=== PATIENT | male | born 1950 | race Caucasian/White ===

== ENCOUNTER 2016-08-25 01:02 | Emergency (ER) | payer SELFPAY ==
[2016-08-25 02:03] LABS: ALANINE AMINOTRANSFERASE 25 U/L (21-72); ALBUMIN 3.8 g/dL (3.5-5.0); ALKALINE PHOSPHATASE 79 U/L (38-126); ANION GAP 13 (5-19); ASPARTATE AMINO TRANSFERASE 26 U/L (17-59); BILIRUBIN,DIRECT 0.4 mg/dL (0.0-0.4); BILIRUBIN,TOTAL 0.5 mg/dL (0.2-1.3); BLOOD UREA NITROGEN 20 mg/dL (7-20); CALCIUM 9.3 mg/dL (8.4-10.2); CARBON DIOXIDE 24 mmol/L (22-30); CHLORIDE 108 mmol/L (98-107); CREATININE RESULT 1.13 mg/dL (0.52-1.25); GLUCOSE 154 mg/dL (75-110); LIPASE 74.8 U/L (23-300); POTASSIUM 3.7 mmol/L (3.6-5.0); SODIUM 145.1 mmol/L (137-145); TOTAL PROTEIN 6.4 g/dL (6.3-8.2)
[2016-08-25 02:21] LABS: ABSOLUTE BASOPHILS # (AUTO) 0.1 10^3/uL (0.0-0.2); ABSOLUTE EOSINOPHILS # (AUTO) 0.3 10^3/uL (0.0-0.6); ABSOLUTE LYMPHOCYTES (AUTO) 1.5 10^3/uL (0.5-4.7); ABSOLUTE MONOCYTES (AUTO) 0.5 10^3/uL (0.1-1.4); ABSOLUTE NEUT (AUTO) 4.5 10^3/uL (1.7-8.2); EOSINOPHILS % (AUTO) 4.5 % (0-6); HEMATOCRIT 37.8 % (37.9-51.0); HGB HCT DIFFERENCE 1.2; LYMPHOCYTES % (AUTO) 21.8 % (13-45); MEAN CORPUSCULAR HEMOGLOBIN 29.4 pg (27.0-33.4); MEAN CORPUSCULAR HGB CONC 34.3 g/dL (32.0-36.0); MEAN CORPUSCULAR VOLUME 86 fl (80-97); MONOCYTES % (AUTO) 7.3 % (3-13); RED BLOOD COUNT 4.41 10^6/uL (4.35-5.55); RED CELL DISTRIBUTION WIDTH 14.3 % (11.5-14.0); SEGMENTED NEUTROPHILS % (AUTO) 65.4 % (42-78); WHITE BLOOD COUNT 6.8 10^3/uL (4.0-10.5)
[2016-08-25] MEDS ORDERED: CIPROFLOXACIN HCL 500 MG TABLET PO ONE (03:01)
[2016-08-25] MEDS ORDERED: METRONIDAZOLE 500 MG TABLET PO ONE (03:01)
--- NOTE | 2016-08-25 03:06 | ER Document Report ---
ED General - General Chief Complaint: Abdominal Pain Stated Complaint: ABDOMINAL PAIN Notes: Patient is a 65-year-old male with past medical history of hypertension, hyperlipidemia and diverticulitis who presents with 2 days of progressively worsening diffuse abdominal pain with associated diarrhea and nausea. Does describe the pain as a diffuse, constant, dull, aching pain. Nothing improves or worsens the pain. Denies a history of similar symptoms in the past. He has not seen his primary care doctor regarding today's concerns. He has not had fever constitutional symptoms. He has not had any melena or hematochezia. Has been tolerating oral intake. TRAVEL OUTSIDE OF THE [place] IN LAST 30 DAYS: No - Related Data Allergies/Adverse Reactions: No Known Allergies Allergy (Verified 11/23/15 17:27) Past Medical History - General Information source: Patient - Social History Smoking Status: Never Smoker Frequency of alcohol use: None Drug Abuse: None Lives with: Spouse/Significant other Family History: Reviewed & Not Pertinent GI Medical History: Reports: Hx Gastroesophageal Reflux Disease, Hx Hiatal Hernia Musculoskeltal Medical History: Reports Hx Arthritis Psychiatric Medical History: Reports: Hx Bipolar Disorder, Hx Depression - Immunizations Hx Pneumococcal Vaccination: 05/15/97 Review of Systems - Review of Systems Notes: Constitutional: Negative for fever. HENT: Negative for sore throat. Eyes: Negative for visual changes. Cardiovascular: Negative for chest pain. Respiratory: Negative for shortness of breath. Gastrointestinal: Positive for abdominal pain and diarrhea. Genitourinary: Negative for dysuria. Musculoskeletal: Negative for back pain. Skin: Negative for rash. Neurological: Negative for headaches, weakness or numbness. 10 point ROS negative except as marked above and in HPI. Physical Exam - Vital signs Vitals: Pulse Resp BP Pulse Ox 57 L 16 102/61 95 08/25/16 03:22 08/25/16 03:22 08/25/16 03:22 08/25/16 03:22 Interpretation: Bradycardic Notes: PHYSICAL EXAMINATION: GENERAL: Well-appearing, well-nourished and in no acute distress. HEAD: Atraumatic, normocephalic. EYES: Pupils equal round and reactive to light, extraocular movements intact, sclera anicteric, conjunctiva are normal. ENT: nares patent, oropharynx clear without exudates. Moist mucous membranes. NECK: Normal range of motion, supple without lymphadenopathy LUNGS: Breath sounds clear to auscultation bilaterally and equal. No wheezes rales or rhonchi. HEART: Regular rate and rhythm without murmurs ABDOMEN: Soft, mild diffuse tenderness without rebound or guarding. Bowel sounds present. No masses. EXTREMITIES: Normal range of motion, no pitting or edema. No cyanosis. NEUROLOGICAL: No focal neurological deficits. Moves all extremities spontaneously and on command. PSYCH: Normal mood, normal affect. SKIN: Warm, Dry, normal turgor, no rashes or lesions noted. Course - Re-evaluation Re-evalutation: 08/25/16 03:05 Patient presents with diffuse abdominal pain with associated diarrhea for the past 2 days. On abdominal exam he has some mild diffuse tenderness without rebound or guarding. Laboratories are overall unremarkable. Patient is nontoxic in appearance of vitals within normal limits at the time of my assessment. CT scan pelvis demonstrates colitis of the transverse and descending colon which is consistent with patient's clinical history. He was started on Cipro and metronidazole. Close outpatient follow-up has been discussed.At this time will discharge with return precautions and follow-up recommendations. Verbal discharge instructions given a the bedside and opportunity for questions given. Medication warnings reviewed. Patient is in agreement with this plan and has verbalized understanding of return precautions and the need for primary care follow-up in the next 24-72 hours. - Vital Signs Vital signs: Temp Pulse Resp BP Pulse Ox 57 L 16 102/61 95 08/25/16 03:22 08/25/16 03:22 08/25/16 03:22 08/25/16 03:22 - Laboratory Result Diagrams: 08/25/16 01:40 08/25/16 01:40 Laboratory results interpreted by me: 08/25/16 08/25/16 01:40 01:40 Hgb 13.0 L Hct 37.8 L RDW 14.3 H Sodium 145.1 H Chloride 108 H Glucose 154 H - Diagnostic Test Radiology reviewed: Reports reviewed Discharge - Discharge Clinical Impression: Colitis Abdominal pain Qualifiers: Abdominal location: generalized Qualified Code(s): R10.84 - Generalized abdominal pain Condition: Good Disposition: HOME, SELF-CARE Additional Instructions: In your abdomen. Your labs, exam, and imaging suggest a diagnosis of colitis. This is an inflammation of a part of your colon. You are being started on antibiotics to treat this infection and inflammation. Please take all of them as directed and complete them even if your symptoms resolve. Please follow-up with your primary care physician within the next 48 hours. Return to the emergency department immediately if you develop worsening pain, persistent vomiting, began having bloody stools, develop a fever of greater than 101F, or have any other symptoms that are concerning to you. Prescriptions: Ciprofloxacin HCl [Cipro 500 mg Tablet] 500 mg PO BID #20 tablet Metronidazole [Flagyl 500 mg Tablet] 500 mg PO TID #30 tablet
[2016-08-25 03:24] VITALS: BP 102/61
== END 2016-08-25 03:22 | disposition home or self-care (01) ==
LOC: ER 01:02
DX: K52.9 Noninfective gastroenteritis and colitis, unspecified (principal); R10.84 Generalized abdominal pain; R19.7 Diarrhea, unspecified; I10 Essential (primary) hypertension; E78.5 Hyperlipidemia, unspecified; K57.92 Diverticulitis of intestine, part unspecified, without perforation or abscess without bleeding; K21.9 Gastro-esophageal reflux disease without esophagitis
CPT/HCPCS: 36415; 74177; 80053; 83690; 85025; 99284

== ENCOUNTER 2017-03-13 15:23 | Emergency (ER) | payer BC, MEDICARE ==
[2017-03-13] MEDS ORDERED: NAPROXEN 250 MG TABLET PO ONE (15:57)
[2017-03-13] MEDS ORDERED: CEPHALEXIN 500 MG CAPSULE PO ONE (15:57)
--- NOTE | 2017-03-13 15:57 | ER Document Report ---
ED Extremity Problem, Upper - General Chief Complaint: Arm Pain Stated Complaint: ARM PAIN Time Seen by Provider: 03/13/17 15:38 Mode of Arrival: Ambulatory Information source: Patient Notes: 66-year-old male presents to ED for pain swelling redness to right arm since Monday when he had an IV for an MRI states he has not injured himself and is not allergic to anything. He states the pain and redness has gradually developed since Monday he thought that it would go away but it did not so he came in to get it checked out. TRAVEL OUTSIDE OF THE [place] IN LAST 30 DAYS: No - HPI Patient complains to provider of: Right, Forearm Onset: Other - Monday Recent injury: No Where: Other - Started after an IV line MRI Quality of pain: Burning Severity of pain: Mild Pain Level: 2 Context: Other - Redness and swelling to the right forearm since his MRI Associated symptoms: None Exacerbated by: Nothing Relieved by: Nothing Similar symptoms previously: No Recently seen / treated by doctor: Yes - Related Data Allergies/Adverse Reactions: No Known Allergies Allergy (Verified 11/23/15 17:27) Past Medical History - General Information source: Patient - Social History Smoking Status: Never Smoker Cigarette use (# per day): No Chew tobacco use (# tins/day): No Smoking Education Provided: No Frequency of alcohol use: None Drug Abuse: None Lives with: Family Family History: Hyperlipidemia, Malignancy. denies: Arthritis, CAD, COPD, CVA, DM, Hypertension, Thyroid Disfunction Patient has suicidal ideation: No Patient has homicidal ideation: No - Past Medical History Cardiac Medical History: Reports: Hx Coronary Artery Disease, Hx Hypercholesterolemia, Hx Hypertension Pulmonary Medical History: Reports: None EENT Medical History: Reports: None Neurological Medical History: Reports: Hx Migraine Endocrine Medical History: Reports: None Renal/ Medical History: Reports: None Malignancy Medical History: Reports None GI Medical History: Reports: Hx Gastroesophageal Reflux Disease, Hx Hiatal Hernia, Hx Colonoscopy Musculoskeltal Medical History: Reports Hx Arthritis, Reports Hx Musculoskeletal Deformity, Reports Hx Musculoskeletal Trauma Skin Medical History: Reports None Psychiatric Medical History: Reports: Hx Bipolar Disorder, Hx Depression, Hx Obsessive Compulsive Disorder Traumatic Medical History: Reports: Hx Traumatic Brain Injury Past Surgical History: Reports: Hx Cardiac Catheterization, Hx Coronary Stent, Hx Inguinal Hernia, Hx Orthopedic Surgery - Need, Hx Vascular Surgery - Took an artery out of left lutheran - Immunizations Immunizations up to date: Yes Hx Diphtheria, Pertussis, Tetanus Vaccination: Yes Hx Pneumococcal Vaccination: 05/15/97 Review of Systems - Review of Systems Constitutional: No symptoms reported EENT: No symptoms reported Cardiovascular: No symptoms reported Respiratory: No symptoms reported Gastrointestinal: No symptoms reported Genitourinary: No symptoms reported Male Genitourinary: No symptoms reported Musculoskeletal: No symptoms reported Skin: Other - Pain redness and swelling to the right forearm after an IV was placed on Monday Hematologic/Lymphatic: No symptoms reported Neurological/Psychological: No symptoms reported -: Yes All other systems reviewed and negative Physical Exam - Vital signs Vitals: Temp Pulse Resp BP Pulse Ox 98.5 F 68 16 118/92 H 96 03/13/17 15:33 03/13/17 15:33 03/13/17 15:33 03/13/17 15:33 03/13/17 15:33 Interpretation: Normal - General General appearance: Appears well, Alert - HEENT Head: Normocephalic, Atraumatic Eyes: Normal Pupils: PERRL - Respiratory Respiratory status: No respiratory distress Chest status: Nontender Breath sounds: Normal Chest palpation: Normal - Cardiovascular Rhythm: Regular Heart sounds: Normal auscultation Murmur: No - Abdominal Inspection: Normal Distension: No distension Bowel sounds: Normal Tenderness: Nontender Organomegaly: No organomegaly - Back Back: Normal, Nontender - Extremities General upper extremity: Normal ROM, Normal temperature General lower extremity: Normal inspection, Nontender, Normal color, Normal ROM , Normal temperature, Normal weight bearing. No: Franklin's sign Arm: Normal, Nontender Elbow: Normal, Nontender Forearm: Tender, Other - Mild erythema and swelling to right forearm Wrist: Normal, Nontender Hand: Normal, Nontender - Neurological Neuro grossly intact: Yes Cognition: Normal Orientation: AAOx4 [place] Coma Scale Eye Opening: Spontaneous [place] Coma Scale Verbal: Oriented Jason Coma Scale Motor: Obeys Commands Jason Coma Scale Total: 15 Speech: Normal Motor strength normal: LUE, RUE, LLE, RLE Sensory: Normal - Psychological Associated symptoms: Normal affect, Normal mood - Skin Skin Temperature: Warm Skin Moisture: Dry Skin Color: Normal Course - Re-evaluation Re-evalutation: 03/13/17 16:22 Patient states he had an MRI on Monday and he had an IV to the right wrist and slowly developed pain and redness to the right forearm. He states it has not gotten better so he became concerned and came to the emergency room. Patient was treated with Keflex and naproxen and instructed to follow-up with his primary doctor as this appears to be of phlebitis. - Vital Signs Vital signs: Temp Pulse Resp BP Pulse Ox 98.0 F 63 18 106/89 H 98 03/13/17 16:03 03/13/17 16:03 03/13/17 16:03 03/13/17 16:03 03/13/17 16:03 Discharge - Discharge Clinical Impression: right forearm phlebitis Condition: Stable Disposition: HOME, SELF-CARE Additional Instructions: You were seen today for pain and redness to the right arm after an IV was inserted on Monday. You will be treated for phlebitis which I have given you a printout concerning phlebitis. Cephalexin The antibiotic you've been prescribed is a member of the cephalosporin class. This type of antibiotic covers a wide variety of infections, including those of the skin, lungs, and urinary tract. It's useful for staph infections. This antibiotic is slightly similar to the penicillin family. In rare cases , a person who is allergic to penicillin will also be allergic to this medication. If you have had a severe allergic reaction to penicillin, and have not taken this antibiotic since that time, notify your doctor. Antibiotics which cover many germs ("broad spectrum" antibiotics) are more likely to cause diarrhea or "yeast" infections. Women prone to vaginal yeast problems may suffer an attack after taking this antibiotic. In infants, oral thrush (white spots "stuck" on the cheek) or yeast diaper rash may result. See your doctor if these problems occur. Call at once if you develop itching, hives , shortness of breath, or lightheadedness. Anti-Inflammatory Medication You have received a prescription for an antiinflammatory agent. This is an excellent, safe drug for pain control. In addition, it has potent antiinflammatory effects which are beneficial, especially in the treatment of injuries, arthritis, or tendonitis. It's best to take this medicine with food. Persons with ulcer disease or allergy to aspirin should notify their physician of this before taking this drug. Take the medication exactly as prescribed. Don't take additional doses unless instructed to do so by your doctor. If you develop wheezing, shortness of breath, hives, faintness, stomach pain, vomiting, or dark black stools, return for re-evaluation at once. FOLLOW-UP CARE: If you have been referred to a physician for follow-up care, call the physician s office for an appointment as you were instructed or within the next two days. If you experience worsening or a significant change in your symptoms, notify the physician immediately or return to the Emergency Department at any time for re-evaluation. Prescriptions: Cephalexin Monohydrate [Keflex 500 mg Capsule] 500 mg PO Q6H 5 Days capsule Naproxen 500 mg PO BID #14 tablet Forms: Elevated Blood Pressure
[2017-03-13 16:08] VITALS: BP 106/89
== END 2017-03-13 16:07 | disposition home or self-care (01) ==
LOC: ER 15:23
DX: T80.1XXA Vascular complications following infusion, transfusion and therapeutic injection, initial encounter (principal); I80.8 Phlebitis and thrombophlebitis of other sites; Y83.8 Other surgical procedures as the cause of abnormal reaction of the patient, or of later complication, without mention of misadventure at the time of the procedure; M79.601 Pain in right arm; I25.10 Atherosclerotic heart disease of native coronary artery without angina pectoris; I10 Essential (primary) hypertension; Z95.5 Presence of coronary angioplasty implant and graft
CPT/HCPCS: 99283; A9270 ×2

== ENCOUNTER 2017-10-23 20:26 | Observation (INO) | payer MEDICARE ==
--- NOTE | 2017-10-23 20:42 | ER Document Report ---
ED Syncope and Near Syncope - General Chief Complaint: Near Syncope Stated Complaint: CHEST PAIN Time Seen by Provider: 10/23/17 20:31 Notes: Patient is a 66-year-old male that comes by EMS for chief complaint of syncopal episode. He states that he started to feel lightheaded, clammy, his arms went numb, he had a mild discomfort in his chest, and he sank down onto the floor and lost consciousness. He denies having a fall injury. He states that when he aroused he became concerned and took a nitroglycerin, called ambulance. He states that the last time he passed out he had an MRI, this was in 2012 and he had 2 stents placed in [place]. He takes 80 mg of Lasix daily, is on labetalol, he also states that he takes Protonix. He states he has been taking Pepto-Bismol and he has had black stools for several days. Denies history of GI bleed. He denies any current symptoms. TRAVEL OUTSIDE OF THE [place] IN LAST 30 DAYS: No - Related Data Allergies/Adverse Reactions: No Known Allergies Allergy (Verified 11/23/15 17:27) Past Medical History - General Information source: Patient - Social History Smoking Status: Never Smoker Frequency of alcohol use: None Drug Abuse: None Lives with: Family Family History: Hyperlipidemia, Malignancy. denies: Arthritis, CAD, COPD, CVA, DM, Hypertension, Thyroid Disfunction - Past Medical History Cardiac Medical History: Reports: Hx Coronary Artery Disease, Hx Hypercholesterolemia, Hx Hypertension Neurological Medical History: Reports: Hx Migraine GI Medical History: Reports: Hx Gastroesophageal Reflux Disease, Hx Hiatal Hernia, Hx Colonoscopy Musculoskeltal Medical History: Reports Hx Arthritis, Reports Hx Musculoskeletal Deformity, Reports Hx Musculoskeletal Trauma Psychiatric Medical History: Reports: Hx Bipolar Disorder, Hx Depression, Hx Obsessive Compulsive Disorder Traumatic Medical History: Reports: Hx Traumatic Brain Injury Past Surgical History: Reports: Hx Cardiac Catheterization, Hx Coronary Stent, Hx Inguinal Hernia, Hx Orthopedic Surgery - Need, Hx Vascular Surgery - Took an artery out of left advent - Immunizations Immunizations up to date: Yes Hx Diphtheria, Pertussis, Tetanus Vaccination: Yes Hx Pneumococcal Vaccination: 05/15/97 Review of Systems - Review of Systems Constitutional: No symptoms reported EENT: No symptoms reported Cardiovascular: See HPI Respiratory: No symptoms reported Gastrointestinal: No symptoms reported Genitourinary: No symptoms reported Male Genitourinary: No symptoms reported Musculoskeletal: No symptoms reported Skin: No symptoms reported Hematologic/Lymphatic: No symptoms reported Neurological/Psychological: See HPI Physical Exam - Vital signs Vitals: Temp Pulse Ox 97.7 F 100 10/23/17 20:34 10/23/17 20:34 - Notes Notes: GENERAL: Alert, interacts well. No acute distress. HEAD: Normocephalic, atraumatic. EYES: Pupils equal, round, and reactive to light. Extraocular movements intact. ENT: Oral mucosa moist, tongue midline. NECK: Full range of motion. Supple. Trachea midline. LUNGS: Clear to auscultation bilaterally, no wheezes, rales, or rhonchi. No respiratory distress. HEART: Sinus bradycardia. No murmur. ABDOMEN: Soft, non-tender. Non-distended. Bowel sounds present in all 4 quadrants. RECTAL: No hemorrhoids, fissures, black stools, or abnormalities noted on exam. EXTREMITIES: Moves all 4 extremities spontaneously. No edema, normal radial and dorsalis pedis pulses bilaterally. No cyanosis. BACK: no cervical, thoracic, lumbar midline tenderness. No saddle anesthesia, normal distal neurovascular exam. NEUROLOGICAL: Alert and oriented x3. Normal speech. [cranial nerves II through XII grossly intact]. PSYCH: Normal affect, normal mood. SKIN: Warm, dry, normal turgor. No rashes or lesions noted. Course - Re-evaluation Re-evalutation: EKG shows sinus bradycardia, flattened T waves inferiorly. CBC unremarkable, chemistry unremarkable, 2 sets of negative troponins. Rectal exam unremarkable , no blood in stool, suspect his stool appeared dark because of the Pepto- Bismol. Urine shows moderate leukocyte esterase, no urinary symptoms, culture placed. Chest x-ray unremarkable. Patient symptoms of bradycardia along with having chest pain, diaphoresis, and syncope are very concerning. As result I discussed with patient and will discuss with hospitalist for telemetry observation and cardiology consult. Likely hold his beta-liberty. Patient states agreement with this plan. Patient has been asymptomatic since he arrived. Discussed with Dr. Martin, internal medicine, patient will be admitted to telemetry observation. - Vital Signs Vital signs: Temp Pulse Resp BP Pulse Ox 98.7 F 12 141/79 H 97 10/24/17 04:29 10/24/17 04:01 10/24/17 04:01 10/24/17 04:01 - Laboratory Result Diagrams: 10/23/17 20:10 10/24/17 04:47 Laboratory results interpreted by me: 10/23/17 10/23/17 10/23/17 20:10 20:10 21:25 RDW 14.1 H Eosinophils % 6.7 H Basophils % 2.5 H Direct Bilirubin 0.5 H Urine Urobilinogen 4.0 H Ur Leukocyte Esterase MODERATE H Discharge - Discharge Clinical Impression: Bradycardia Chest pain Qualifiers: Chest pain type: unspecified Qualified Code(s): R07.9 - Chest pain, unspecified Episode of syncope Qualifiers: Syncope type: unspecified Qualified Code(s): R55 - Syncope and collapse Condition: Stable Disposition: ADMITTED OBSERVATION Admitting Provider: Hospitalist Unit Admitted: Telemetry
[2017-10-23 20:48] LABS: ABSOLUTE BASOPHILS # (AUTO) 0.1 10^3/uL (0.0-0.2); ABSOLUTE EOSINOPHILS # (AUTO) 0.4 10^3/uL (0.0-0.6); ABSOLUTE LYMPHOCYTES (AUTO) 2.1 10^3/uL (0.5-4.7); ABSOLUTE MONOCYTES (AUTO) 0.3 10^3/uL (0.1-1.4); ABSOLUTE NEUT (AUTO) 2.6 10^3/uL (1.7-8.2); BASOPHILS % (AUTO) 2.5 % (0-2); EOSINOPHILS % (AUTO) 6.7 % (0-6); HEMATOCRIT 43.3 % (37.9-51.0); HEMOGLOBIN 14.6 g/dL (13.5-17.0); LYMPHOCYTES % (AUTO) 37.3 % (13-45); MEAN CORPUSCULAR HEMOGLOBIN 29.6 pg (27.0-33.4); MEAN CORPUSCULAR HGB CONC 33.7 g/dL (32.0-36.0); MEAN CORPUSCULAR VOLUME 88 fl (80-97); PLATELET COUNT 253 10^3/uL (150-450); RED BLOOD COUNT 4.93 10^6/uL (4.35-5.55); RED CELL DISTRIBUTION WIDTH 14.1 % (11.5-14.0); SEGMENTED NEUTROPHILS % (AUTO) 47.5 % (42-78); TOTAL CELLS COUNTED % (AUTO) 100 %; WHITE BLOOD COUNT 5.5 10^3/uL (4.0-10.5)
[2017-10-23 20:58] LABS: ALANINE AMINOTRANSFERASE 26 U/L (21-72); ALBUMIN 4.2 g/dL (3.5-5.0); ALKALINE PHOSPHATASE 83 U/L (38-126); ANION GAP 15 (5-19); ASPARTATE AMINO TRANSFERASE 29 U/L (17-59); BILIRUBIN,DIRECT 0.5 mg/dL (0.0-0.4); BILIRUBIN,TOTAL 0.7 mg/dL (0.2-1.3); BLOOD UREA NITROGEN 18 mg/dL (7-20); CALCIUM 9.6 mg/dL (8.4-10.2); CARBON DIOXIDE 27 mmol/L (22-30); CHLORIDE 101 mmol/L (98-107); CREATINE KINASE 149 U/L (55-170); GLUCOSE 108 mg/dL (75-110); SODIUM 142.8 mmol/L (137-145); TOTAL PROTEIN 7.1 g/dL (6.3-8.2)
[2017-10-23 21:10] LABS: TROPONIN I < 0.012 ng/mL
--- NOTE | 2017-10-23 21:14 | RADIOLOGY REPORT (SQ) ---
EXAM DESCRIPTION: CHEST SINGLE VIEW COMPLETED DATE/TIME: 10/23/2017 8:47 pm REASON FOR STUDY: chest pain COMPARISON: 11/25/2015 EXAM PARAMETERS: NUMBER OF VIEWS: One view. TECHNIQUE: Single frontal radiographic view of the chest acquired. RADIATION DOSE: NA LIMITATIONS: None. FINDINGS: LUNGS AND PLEURA: No acute opacities, masses or pneumothorax. No pleural effusion. MEDIASTINUM AND HILAR STRUCTURES: Age-appropriate. HEART AND VASCULAR STRUCTURES: Heart normal in size. Normal vasculature. BONES: No acute findings. HARDWARE: None in the chest. OTHER: No other significant finding. IMPRESSION: NO ACUTE RADIOGRAPHIC FINDING IN THE CHEST. TECHNICAL DOCUMENTATION: JOB ID: [id number] [place]-72 2010 [employer]- All Rights Reserved Reading location - IP/workstation name: [employer]
[2017-10-23 21:50] LABS: APPEARANCE,URINE CLEAR; BILIRUBIN,URINE NEGATIVE (NEGATIVE); COLOR,URINE AMBER; GLUCOSE, URINE NEGATIVE (NEGATIVE); KETONES,URINE NEGATIVE (NEGATIVE); LEUKOCYTE ESTERASE,URINE MODERATE (NEGATIVE); NITRITE,URINE NEGATIVE (NEGATIVE); PROTEIN,URINE NEGATIVE (NEGATIVE); URINE SPECIFIC GRAVITY 1.013
[2017-10-24 01:22] LABS: URINE AMPHETAMINES SCREEN NEGATIVE; URINE BARBITURATES SCREEN UNCONFIRMED POSITIVE; URINE BENZODIAZEPINES SCREEN NEGATIVE; URINE COCAINE SCREEN NEGATIVE; URINE MARIJUANA (THC) SCREEN NEGATIVE; URINE METHADONE SCREEN NEGATIVE; URINE PHENCYCLIDINE SCREEN NEGATIVE
[2017-10-24] MEDS ORDERED: IPRATROPIUM/ALBUTEROL 0.5-2.5 MG/3 ML AMPUL NEB PRN (02:41)
[2017-10-24] MEDS ORDERED: ACETAMINOPHEN 325 MG TABLET PO PRN (02:41)
[2017-10-24] MEDS: NORMAL SALINE 1000 ML 1,000 ML IV PRN ×2 (04:24→06:47)
[2017-10-24 05:29] LABS: ANION GAP 6 (5-19); BLOOD UREA NITROGEN 19 mg/dL (7-20); CALCIUM 9.4 mg/dL (8.4-10.2); CARBON DIOXIDE 31 mmol/L (22-30); CHLORIDE 108 mmol/L (98-107); CREATINE KINASE 94 U/L (55-170); GLUCOSE 93 mg/dL (75-110); POTASSIUM 4.2 mmol/L (3.6-5.0); SODIUM 144.5 mmol/L (137-145)
[2017-10-24 05:38] LABS: CREATINE KINASE MB 0.97 ng/mL (<4.55)
[2017-10-24 05:42] LABS: TROPONIN I < 0.012 ng/mL
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
[2017-10-24] MEDS: HEPARIN SOD (PORCINE) 5,000 UNIT/ML 1 ML SYRINGE SUBCUT SCH ×3 (06:48→23:46)
--- NOTE | 2017-10-24 07:39 | EKG REPORT ---
SEVERITY:- ABNORMAL ECG - SINUS BRADYCARDIA INCOMPLETE RIGHT BUNDLE BRANCH BLOCK : Confirmed by: Nathen Washington MD 24-Oct-2017 07:38:41
[2017-10-24] MEDS: GABAPENTIN 300 MG CAPSULE PO SCH ×3 (10:32→18:25)
[2017-10-24] MEDS: ASPIRIN 81 MG TABLET, ENT COATED PO SCH (10:32)
[2017-10-24] MEDS: SIMVASTATIN 10 MG TABLET PO SCH (10:33)
[2017-10-24] MEDS: QUETIAPINE FUMARATE 100 MG TABLET PO SCH (10:33)
[2017-10-24] MEDS: DOCUSATE SODIUM 100 MG CAPSULE PO SCH ×2 (10:34→18:23)
[2017-10-24] MEDS: FLUOXETINE HCL 20 MG CAPSULE PO SCH (10:34)
[2017-10-24 12:03] LABS: CREATINE KINASE MB 1.01 ng/mL (<4.55)
[2017-10-24 12:11] LABS: TROPONIN I < 0.012 ng/mL
[2017-10-24 17:17] LABS: CREATINE KINASE MB 0.98 ng/mL (<4.55)
[2017-10-24 17:22] LABS: TROPONIN I < 0.012 ng/mL
[2017-10-25 06:47] LABS: ANION GAP 10 (5-19); BLOOD UREA NITROGEN 17 mg/dL (7-20); CALCIUM 9.5 mg/dL (8.4-10.2); CARBON DIOXIDE 27 mmol/L (22-30); CHLORIDE 107 mmol/L (98-107); GLUCOSE 85 mg/dL (75-110); POTASSIUM 4.4 mmol/L (3.6-5.0); SODIUM 143.5 mmol/L (137-145)
[2017-10-25] MEDS: HEPARIN SOD (PORCINE) 5,000 UNIT/ML 1 ML SYRINGE SUBCUT SCH ×2 (08:11→14:46)
[2017-10-25] MEDS: GABAPENTIN 300 MG CAPSULE PO SCH ×2 (09:56→14:44)
[2017-10-25] MEDS: SIMVASTATIN 10 MG TABLET PO SCH (09:57)
[2017-10-25] MEDS: FLUOXETINE HCL 20 MG CAPSULE PO SCH (09:59)
[2017-10-25] MEDS: ASPIRIN 81 MG TABLET, ENT COATED PO SCH (10:05)
[2017-10-25] MEDS: DOCUSATE SODIUM 100 MG CAPSULE PO SCH (10:10)
[2017-10-25 11:58] VITALS: BP 120/91
--- NOTE | 2017-10-25 13:01 | PDOC DISCHARGE SUMMARY ---
General - Admit/Disc Date/PCP Admission Date/Primary Care Provider: 10/24/17 01:07 MARU HAYWOOD MD Discharge Date: 10/25/17 - Discharge Diagnosis (1) Pre-syncope Is this a current diagnosis for this admission?: Yes (2) Bradycardia Is this a current diagnosis for this admission?: Yes (3) Chest pain Is this a current diagnosis for this admission?: Yes (4) Chronic pain Is this a current diagnosis for this admission?: Yes (5) Chronic, continuous use of opioids Is this a current diagnosis for this admission?: Yes - Additional Information Resuscitation Status: Full Code Discharge Diet: Cardiac Discharge Activity: Activity As Tolerated Prescriptions: Tramadol HCl 50 mg PO Q6HP PRN #30 tablet PRN Reason: Home Medications: Aspirin [Aspirin EC] 81 mg PO QHS 10/24/17 Butalb/Acetaminophen/Caffeine [Fioricet (50-325-40 mg) Tablet] 1 tab PO DAILYP PRN 10/24/17 Fluoxetine HCl [Prozac] 40 mg PO QHS 10/24/17 Gabapentin [Neurontin] 600 mg PO Q8 10/24/17 Lisinopril [Prinivil 5 mg Tablet] 5 mg PO QHS 10/24/17 Nitroglycerin [Nitrostat 0.4 mg (1/150 Gr) Tabs 25/Bottle] 1 tab SL Q5MP PRN 05/01 Quetiapine Fumarate [Seroquel 100 mg Tablet] 100 mg PO QHS 10/24/17 Ranitidine HCl [Zantac] 300 mg PO QHS 10/24/17 Simvastatin [Zocor 20 mg Tablet] 20 mg PO QHS 10/24/17 Tramadol HCl 50 mg PO Q6HP PRN #30 tablet 10/25/17 History of Present Illness Patient complains of: Lightheadedness and dizziness History of Present Illness: LUZ TADEO is a 66 year old male his patient was admitted with presyncope. He had felt lightheaded with numbness. Was found to be bradycardic in the emergency room. Hospital Course Hospital Course: This patient was admitted with presyncope. He had felt lightheaded with numbness. Was found to be bradycardic in the emergency room. He was monitored on telemetry floor due to his bradycardia and his heart rate did improve with no further he has noted on telemetry. Patient had been ambulatory with no further symptomshis patient was admitted with presyncope. He had felt lightheaded with numbness. Was found to be bradycardic in the emergency room. He was monitored on telemetry floor due to his bradycardia and his heart rate did improve with no further he has noted on telemetry. Patient had been ambulatory with no further symptoms. It is felt that his presenting symptom may have been due to a combination of polypharmacy especially including multiple narcotics as well as beta-blockers. Without resolution of his presenting symptoms and hemodynamic stability patient is been discharged home. He however has been advised to follow-up with bow maker for an event monitor due to the occasional bradycardia that was noted. Patient was also advised to follow-up with his primary care physician for evaluation of his narcotics and his other medications as this may also be a contributing factor. Physical Exam Vital Signs: Temp Pulse Resp BP Pulse Ox 98.0 F 64 19 120/91 H 100 10/25/17 11:11 10/25/17 11:12 10/25/17 11:11 10/25/17 11:12 10/25/17 11:12 Intake & Output 10/24/17 10/25/17 10/26/17 06:59 06:59 06:59 Intake Total 882 Output Total 700 Balance 182 Weight 83.3 kg General appearance: PRESENT: no acute distress, well-developed, well-nourished Head exam: PRESENT: atraumatic, other - abnormal Eye exam: PRESENT: conjunctiva pink, EOMI, PERRLA. ABSENT: scleral icterus Ear exam: PRESENT: normal external ear exam Mouth exam: PRESENT: moist, tongue midline Neck exam: ABSENT: carotid bruit, JVD, lymphadenopathy, thyromegaly Respiratory exam: PRESENT: clear to auscultation lisa. ABSENT: rales, rhonchi, wheezes Cardiovascular exam: PRESENT: RRR. ABSENT: diastolic murmur, rubs, systolic murmur Pulses: PRESENT: normal dorsalis pedis pul Vascular exam: PRESENT: normal capillary refill GI/Abdominal exam: PRESENT: normal bowel sounds, soft. ABSENT: distended, guarding, mass, organolmegaly, rebound, tenderness Rectal exam: PRESENT: deferred Extremities exam: PRESENT: full ROM. ABSENT: calf tenderness, clubbing, pedal edema Neurological exam: PRESENT: alert, awake, oriented to person, oriented to place , oriented to time, oriented to situation, CN II-XII grossly intact. ABSENT: motor sensory deficit Psychiatric exam: PRESENT: appropriate affect, normal mood. ABSENT: homicidal ideation, suicidal ideation Skin exam: PRESENT: dry, intact, warm. ABSENT: cyanosis, rash Results Laboratory Results: 10/25/17 05:22 10/25/17 05:22 Sodium 143.5 Potassium 4.4 Chloride 107 Carbon Dioxide 27 Anion Gap 10 BUN 17 Creatinine 0.97 Est GFR ( Amer) > 60 Est GFR (Non-Af Amer) > 60 Glucose 85 Calcium 9.5 10/24/17 10/24/17 10/24/17 04:47 04:47 11:10 Creatine Kinase 94 87 CK-MB (CK-2) 0.97 Troponin I < 0.012 10/24/17 10/24/17 10/24/17 11:10 16:35 16:35 Creatine Kinase 81 CK-MB (CK-2) 1.01 0.98 Troponin I < 0.012 < 0.012 Impressions: Chest X-Ray 10/23/17 20:40 IMPRESSION: NO ACUTE RADIOGRAPHIC FINDING IN THE CHEST. Qualifiers - * PATIENT BEING DISCHARGED WITH ANY OF THE FOLLOWING DIAGNOSIS: No Plan Time Spent: Less than 30 Minutes
[2017-10-25] MEDS: QUETIAPINE FUMARATE 100 MG TABLET PO SCH (13:25)
[2017-10-25] MEDS ORDERED: BUTALB/ACETAMINOPHEN/CAFFEINE 1 TAB EACH PO ONE (14:00)
[2017-10-25] MEDS ORDERED: QUETIAPINE FUMARATE 100 MG TABLET PO SCH (22:00)
== END 2017-10-25 15:21 | disposition home or self-care (01) ==
LOC: ER 20:26 → EH 10-24 01:07 → 4W 10-24 14:01 → 4N 10-25 11:06
PROVIDERS: ADMIT Internal Medicine; ATTEND Internal Medicine
DX: R55 Syncope and collapse (principal); R00.1 Bradycardia, unspecified; R07.9 Chest pain, unspecified; G89.29 Other chronic pain; R42 Dizziness and giddiness; R20.0 Anesthesia of skin; F31.9 Bipolar disorder, unspecified; I25.10 Atherosclerotic heart disease of native coronary artery without angina pectoris; E78.5 Hyperlipidemia, unspecified; I10 Essential (primary) hypertension; R19.5 Other fecal abnormalities; Z79.891 Long term (current) use of opiate analgesic; Z79.82 Long term (current) use of aspirin; Z95.5 Presence of coronary angioplasty implant and graft; Z98.890 Other specified postprocedural states; Z79.899 Other long term (current) drug therapy
CPT/HCPCS: 93005; 99285; 96361; 96374; 36415 ×3; 87086; 82553 ×2; 82550 ×2; 83735; 85025; 82272; 80048 ×2; 80053; 81001; 84484 ×2; 80307; 71045; 93010; G0378 ×3; A9270 ×11; J1644 ×2; J7030; J3490

== ENCOUNTER 2018-02-23 18:48 | Emergency (ER) | payer BC, MEDICARE ==
--- NOTE | 2018-02-23 19:05 | ER Document Report ---
ED Medical Screen (RME) - General Chief Complaint: Leg Swelling Stated Complaint: POSSIBLE BLOOD CLOT IN LEG Time Seen by Provider: 02/23/18 19:04 Mode of Arrival: Ambulatory Information source: Patient TRAVEL OUTSIDE OF THE [place] IN LAST 30 DAYS: No - HPI Patient complains to provider of: L leg pain and swelling Onset: This morning - Pt .sent here from [facility] for possible blood clot in L leg. Pt. with h/o dvt - Related Data Allergies/Adverse Reactions: No Known Allergies Allergy (Verified 10/24/17 10:06) Past Medical History - Social History Chew tobacco use (# tins/day): No Frequency of alcohol use: None Drug Abuse: None - Past Medical History Cardiac Medical History: Reports: Hx Coronary Artery Disease, Hx Hypercholesterolemia, Hx Hypertension Neurological Medical History: Reports: Hx Migraine Renal/ Medical History: Denies: Hx Peritoneal Dialysis GI Medical History: Reports: Hx Gastroesophageal Reflux Disease, Hx Hiatal Hernia, Hx Colonoscopy Musculoskeltal Medical History: Reports Hx Arthritis, Reports Hx Musculoskeletal Deformity, Reports Hx Musculoskeletal Trauma Psychiatric Medical History: Reports: Hx Bipolar Disorder, Hx Depression, Hx Obsessive Compulsive Disorder Traumatic Medical History: Reports: Hx Traumatic Brain Injury Past Surgical History: Reports: Hx Cardiac Catheterization, Hx Coronary Stent, Hx Inguinal Hernia, Hx Orthopedic Surgery - Need, Hx Vascular Surgery - Took an artery out of left confucianism - Immunizations Immunizations up to date: Yes Hx Diphtheria, Pertussis, Tetanus Vaccination: Yes History of Influenza Vaccine for 02/2017 - 07/2017 Season: Unknown Physical Exam - Vital signs Vitals: Temp Pulse BP Pulse Ox 98.5 F 65 138/82 H 99 02/23/18 18:54 02/23/18 18:54 02/23/18 18:54 02/23/18 18:54 Course - Vital Signs Vital signs: Temp Pulse Resp BP Pulse Ox 98.5 F 65 138/82 H 99 02/23/18 18:54 02/23/18 18:54 02/23/18 18:54 02/23/18 18:54 Doctor's Discharge - Discharge Referrals: MARU HAYWOOD MD [Primary Care Provider] - Follow up as needed
[2018-02-23 20:26] LABS: ABSOLUTE BASOPHILS # (AUTO) 0.1 10^3/uL (0.0-0.2); ABSOLUTE EOSINOPHILS # (AUTO) 0.3 10^3/uL (0.0-0.6); ABSOLUTE LYMPHOCYTES (AUTO) 1.3 10^3/uL (0.5-4.7); ABSOLUTE MONOCYTES (AUTO) 0.4 10^3/uL (0.1-1.4); ABSOLUTE NEUT (AUTO) 3.2 10^3/uL (1.7-8.2); BASOPHILS % (AUTO) 1.2 % (0-2); EOSINOPHILS % (AUTO) 6.2 % (0-6); HEMATOCRIT 38.3 % (37.9-51.0); HEMOGLOBIN 13.1 g/dL (13.5-17.0); LYMPHOCYTES % (AUTO) 23.8 % (13-45); MEAN CORPUSCULAR HEMOGLOBIN 29.4 pg (27.0-33.4); MEAN CORPUSCULAR HGB CONC 34.1 g/dL (32.0-36.0); MEAN CORPUSCULAR VOLUME 86 fl (80-97); MONOCYTES % (AUTO) 7.8 % (3-13); PLATELET COUNT 200 10^3/uL (150-450); RED BLOOD COUNT 4.44 10^6/uL (4.35-5.55); RED CELL DISTRIBUTION WIDTH 13.6 % (11.5-14.0); TOTAL CELLS COUNTED % (AUTO) 100 %; WHITE BLOOD COUNT 5.3 10^3/uL (4.0-10.5)
[2018-02-23 20:49] LABS: ALANINE AMINOTRANSFERASE 36 U/L (21-72); ALBUMIN 3.8 g/dL (3.5-5.0); ALKALINE PHOSPHATASE 70 U/L (38-126); ANION GAP 8 (5-19); ASPARTATE AMINO TRANSFERASE 28 U/L (17-59); BILIRUBIN,DIRECT 0.1 mg/dL (0.0-0.4); BILIRUBIN,TOTAL 0.4 mg/dL (0.2-1.3); BLOOD UREA NITROGEN 12 mg/dL (7-20); CALCIUM 9.4 mg/dL (8.4-10.2); CARBON DIOXIDE 29 mmol/L (22-30); CHLORIDE 103 mmol/L (98-107); GLUCOSE 70 mg/dL (75-110); POTASSIUM 4.2 mmol/L (3.6-5.0); SODIUM 140.4 mmol/L (137-145); TOTAL PROTEIN 6.6 g/dL (6.3-8.2)
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
[2018-02-23 22:51] VITALS: BP 149/92
[2018-02-23] MEDS: NAPROXEN 250 MG TABLET PO ONE (22:53)
--- NOTE | 2018-02-24 08:33 | XCELERA REPORT ---
[address] [place] [facility] [address] Lower Extremity Venous Evaluation Procedure: A unilateral duplex scan of the left lower extremity veins was performed. The evaluation included responses to compression and other maneuvers. The contralateral femoral vein was also evaluated.Reason Left Sided Venous Evaluation Normal vessel filling wall to wall, compression and augmentation as well as Colour flow down to the infrageniculate veins. Interpretation Summary Normal compression, patency, spontaneous and phasic flow of the left lower extremity veins. Name: LUZ TADEO Age: 67 yrs Gender: Male : 1950 Patient Status: Emergency Patient Location: ER Study Date: 02/23/2018 07:26 PM For Study: L leg pain and swelling Ordering Physician: STEPHANY POTTS Performed By: Steffanie Ramos : STEPHANY POTTS > Juan C Mcclain
== END 2018-02-23 22:55 | disposition home or self-care (01) ==
LOC: ER 18:48
DX: M25.472 Effusion, left ankle (principal); M79.662 Pain in left lower leg; M25.572 Pain in left ankle and joints of left foot; Z87.828 Personal history of other (healed) physical injury and trauma; Z86.718 Personal history of other venous thrombosis and embolism
CPT/HCPCS: 36415; 80053; 85025; 93971; 99284

== ENCOUNTER 2018-02-27 11:33 | Emergency (ER) | payer MEDICARE ==
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
[2018-02-27 14:24] VITALS: BP 137/93
--- NOTE | 2018-02-27 15:14 | RADIOLOGY REPORT (SQ) ---
EXAM DESCRIPTION: VENOUS UNILATERAL LOWER COMPLETED DATE/TIME: 02/27/2018 3:00 pm REASON FOR STUDY: pain left leg / Hx clots COMPARISON: 02/23/2018 TECHNIQUE: Dynamic and static parson scale and color images acquired of the left leg venous system. Se lected spectral images acquired with additional compression and augmentation maneuvers. The contralat eral common femoral vein and saphenofemoral junction were also imaged. Images stored on PACS. LIMITATIONS: None. FINDINGS: COMMON FEMORAL: Normal phasicity, compression and augmentation. No visualized echogenic ma terial on parson scale. No defects on color images. FEMORAL: Normal compression and augmentation. No visualized echogenic material on parson scale. No defe cts on color images. POPLITEAL: Normal compression, augmentation. No visualized echogenic material on parson scale. No defec ts on color images. CALF VESSELS: Normal compression, augmentation. No visualized echogenic material on parson scale. No de fects on color images. GSV and SSV: Normal compression, augmentation. No visualized echogenic material on parson scale. No def ects on color images. ANY DEEP VENOUS INSUFFICIENCY: Not evaluated. ANY EVIDENCE OF POPLITEAL CYST: No. OTHER: No other significant finding. CONTRALATERAL COMMON FEMORAL VEIN AND SAPHENOFEMORAL JUNCTION: Normal phasicity, compression and augmentation. No visualized echogenic material on parson scale. No de fects on color images. IMPRESSION: NO EVIDENCE DVT OR SVT IN THE LEFT LEG. TECHNICAL DOCUMENTATION: JOB ID: [id number] [employer]- All Rights Reserved Reading location - IP/workstation name: [email or web address]
== END 2018-02-27 14:27 | disposition home or self-care (01) ==
LOC: ER 11:33
DX: L02.416 Cutaneous abscess of left lower limb (principal); L03.116 Cellulitis of left lower limb; I25.10 Atherosclerotic heart disease of native coronary artery without angina pectoris; I10 Essential (primary) hypertension; Z95.5 Presence of coronary angioplasty implant and graft; Z86.718 Personal history of other venous thrombosis and embolism; Z86.711 Personal history of pulmonary embolism
CPT/HCPCS: 93971; 99283

== ENCOUNTER 2018-03-25 21:43 | Emergency (ER) | payer MEDICARE ==
--- NOTE | 2018-03-25 21:49 | ER Document Report ---
ED General - General Stated Complaint: SYNCOPE Time Seen by Provider: 03/25/18 21:48 Notes: Patient is a 67-year-old male that presents to the emergency department for chief complaint of syncope and abdominal pain. Patient states he was having right-sided abdominal pain, and he went to get up, and felt lightheaded and flushed, and he went to try to have a bowel movement on the toilet, and while doing so he had passed out very briefly. EMS was called and he was brought to the emergency department. He denies having any chest pain associated with this or shortness of breath. He still complaining of right-sided abdominal pain, he states he does have a right-sided inguinal hernia that he states needs to be repaired but he has not had it addressed yet. But his pain is more superior to that. He currently rates the pain as an 8 out of 10 describes it as a constant aching sensation, that extends across the abdomen. Denies any recent fevers, chills, night sweats, but does admit to having some nausea and vomiting. Past Medical History: Hyperlipidemia, hypertension Past Surgical History: Inguinal hernia repair Social History: Denies tobacco, alcohol or drug use Family History: Reviewed and noncontributory for presenting illness Allergies: Reviewed, see documented allergy list. REVIEW OF SYSTEMS: Other than noted above, the 12 point review of systems was reviewed with the patient and were negative, all pertinent findings are included in the HPI. PHYSICAL EXAMINATION: Vital signs reviewed, nursing noted reviewed. GENERAL: Well-appearing, well-nourished and in no acute distress. HEAD: Atraumatic, normocephalic. EYES: Eyes appear normal, extraocular movements intact, sclera anicteric, conjunctiva are normal. ENT: nares patent, oropharynx clear without exudates. Moist mucous membranes. NECK: Normal range of motion, supple without lymphadenopathy LUNGS: Breath sounds clear to auscultation bilaterally and equal. No wheezes rales or rhonchi. HEART: Regular rate and rhythm without murmurs ABDOMEN: Soft, right-sided abdominal tenderness with palpation, mild distention noted as well, normoactive bowel sounds. No rebound, guarding, or rigidity. Inguinal hernia appreciated, but not reducible on my exam EXTREMITIES: Nontender, good range of motion, no pitting or edema. NEUROLOGICAL: No focal neurological deficits. Moves all extremities spontaneously Motor and sensory grossly intact on exam. PSYCH: Normal mood, normal affect. SKIN: Warm, Dry, normal turgor, no rashes or lesions noted on exposed skin TRAVEL OUTSIDE OF THE [place] IN LAST 30 DAYS: No - Related Data Allergies/Adverse Reactions: No Known Allergies Allergy (Verified 10/24/17 10:06) Past Medical History - Social History Smoking Status: Never Smoker Family History: Hyperlipidemia, Malignancy. denies: Arthritis, CAD, COPD, CVA, DM, Hypertension, Thyroid Disfunction - Past Medical History Cardiac Medical History: Reports: Hx Coronary Artery Disease, Hx Heart Attack, Hx Hypercholesterolemia, Hx Hypertension Neurological Medical History: Reports: Hx Migraine Renal/ Medical History: Denies: Hx Peritoneal Dialysis GI Medical History: Reports: Hx Gastroesophageal Reflux Disease, Hx Hiatal Hernia, Hx Colonoscopy Musculoskeletal Medical History: Reports Hx Arthritis, Reports Hx Musculoskeletal Deformity, Reports Hx Musculoskeletal Trauma Psychiatric Medical History: Reports: Hx Bipolar Disorder, Hx Depression, Hx Obsessive Compulsive Disorder Traumatic Medical History: Reports: Hx Traumatic Brain Injury Past Surgical History: Reports: Hx Cardiac Catheterization, Hx Coronary Stent, Hx Inguinal Hernia, Hx Orthopedic Surgery - Need, Hx Vascular Surgery - Took an artery out of left adventism - Immunizations Immunizations up to date: Yes Hx Diphtheria, Pertussis, Tetanus Vaccination: Yes Hx Pneumococcal Vaccination: 05/15/97 Physical Exam - Vital signs Vitals: Pulse Ox 100 03/25/18 21:48 Course - Re-evaluation Re-evalutation: Patient seen and examined vital signs reviewed. Laboratory data and imaging were ordered as appropriate for the patient's presenting symptoms and complaint, with consideration of any critical or life threatening conditions that may be associated with their obtained history and exam as noted above. Patient was treated with IV fluids, IV morphine and Zofran Results were reviewed when available and demonstrated CT imaging, was negative for acute process, patient did have a little hernia containing a loop of bowel, but no obstruction, a did have significant stool impaction in the rectum that was noted as well. He had some small liver cysts, which the patient was made aware for follow-up The patient was re-evaluated and was still having some pain, therefore IV Dilaudid was ordered. I discussed him CT imaging findings, and that he did have a significant amount of stool in his colon, he is only had diarrhea small amounts in the ED. I think this is because he is having impaction with diarrhea around this. We will give him a suppository and laxative, I discussed his case with the surgeon on-call Dr. Pollock, because the patient had a slightly elevated lactate of 3.0, and if this was related to his hernia, which she did not believe so, there is nonobstructing, and the patient's pain was not related to where the site of the hernia is. However he stated that he will follow-up with the patient, and that he can come to the office tomorrow. He will follow-up with him. Patient had a large bowel movement prior to discharge and was much improved afterward. In regards to the patient's syncope, his EKG was unchanged from prior, negative troponin, negative chest x-ray, his syncopal episode was while he was straining on the toilet, and leaning forward, and very circumstantial consistent with vasovagal syncope. Evaluation was most consistent with abdominal pain, constipation Results were discussed with the patient at this point, after careful consideration I feel that that patient can be discharged from the emergency department, the patient was educated treatments and reasons to return to the emergency department based on their presumed diagnosis as noted above, they were advised to followup with a primary care physician in 2-3 days. Patient was agreeable to plan of care. *Note is created using voice recognition software and may contain spelling, syntax or grammatical errors. Laboratory 03/25/18 03/25/18 03/25/18 21:56 21:56 21:56 WBC 8.0 RBC 5.09 Hgb 15.0 Hct 44.4 MCV 87 MCH 29.5 MCHC 33.8 RDW 14.4 H Plt Count 201 Seg Neutrophils % 58.6 Lymphocytes % 31.0 Monocytes % 5.1 Eosinophils % 4.1 Basophils % 1.2 Absolute Neutrophils 4.7 Absolute Lymphocytes 2.5 Absolute Monocytes 0.4 Absolute Eosinophils 0.3 Absolute Basophils 0.1 Sodium 141.3 Potassium 3.7 Chloride 103 Carbon Dioxide 24 Anion Gap 14 BUN 16 Creatinine 1.12 Est GFR ( Amer) > 60 Est GFR (Non-Af Amer) > 60 Glucose 133 H Lactic Acid Calcium 10.2 Total Bilirubin 0.5 Direct Bilirubin 0.4 Neonat Total Bilirubin Not Reportable Neonat Direct Bilirubin Not Reportable Neonat Indirect Bili Not Reportable AST 36 ALT 24 Alkaline Phosphatase 100 Creatine Kinase 120 CK-MB (CK-2) 1.95 Troponin I < 0.012 Total Protein 7.3 Albumin 4.3 Lipase 82.8 03/25/18 21:56 WBC RBC Hgb Hct MCV MCH MCHC RDW Plt Count Seg Neutrophils % Lymphocytes % Monocytes % Eosinophils % Basophils % Absolute Neutrophils Absolute Lymphocytes Absolute Monocytes Absolute Eosinophils Absolute Basophils Sodium Potassium Chloride Carbon Dioxide Anion Gap BUN Creatinine Est GFR ( Amer) Est GFR (Non-Af Amer) Glucose Lactic Acid 3.0 H Calcium Total Bilirubin Direct Bilirubin Neonat Total Bilirubin Neonat Direct Bilirubin Neonat Indirect Bili AST ALT Alkaline Phosphatase Creatine Kinase CK-MB (CK-2) Troponin I Total Protein Albumin Lipase Chest X-Ray 03/25/18 21:48 IMPRESSION: No acute disease. Abdomen/Pelvis CT 03/25/18 22:01 IMPRESSION: No acute disease. Right inguinal hernia containing a short length of small bowel without obstruction. Mild sigmoid diverticulosis without CT evidence for acute diverticulitis. - Vital Signs Vital signs: Temp Pulse Resp BP Pulse Ox 97.3 F 14 137/87 H 96 03/26/18 00:37 03/26/18 00:37 03/26/18 00:37 03/26/18 00:37 - Laboratory Result Diagrams: 03/25/18 21:56 03/25/18 21:56 Laboratory results interpreted by me: 03/25/18 03/25/18 03/25/18 21:56 21:56 21:56 RDW 14.4 H Glucose 133 H Lactic Acid 3.0 H - EKG Interpretation by Me Additional EKG results interpreted by me: EKG demonstrates sinus rhythm with incomplete right bundle branch block, and left anterior fascicular block, with a ventricular rate of 58 bpm, left axis deviation, QTC 476 ms, this is compared with prior EKG from , without significant change. Discharge - Discharge Clinical Impression: Liver cyst Abdominal pain Qualifiers: Abdominal location: unspecified location Qualified Code(s): R10.9 - Unspecified abdominal pain Constipation Qualifiers: Constipation type: unspecified constipation type Qualified Code(s): K59.00 - Constipation, unspecified Syncope Qualifiers: Syncope type: unspecified Qualified Code(s): R55 - Syncope and collapse Condition: Stable Disposition: HOME, SELF-CARE Instructions: Abdominal Pain ([facility]), Constipation ([facility]) Additional Instructions: Please follow-up with general surgery, tomorrow, call for appointment in the morning, take the prescribed MiraLAX daily, additionally need to follow-up with your primary care physician, to follow-up on the incidental liver cyst as discussed, copy of your CT results was provided with your discharge paperwork. Prescriptions: Polyethylene Glycol 3350 [Miralax] 17 gm PO DAILY #238 powder Referrals: MARU HAYWOOD MD [Primary Care Provider] - Follow up in 3-5 days TWIN POLLOCK MD [ACTIVE STAFF] - Follow up tomorrow (general surgery)
[2018-03-25] MEDS ORDERED: ONDANSETRON HCL INJ/PF 4 MG/2 ML SDV IV ONE (22:00)
[2018-03-25] MEDS ORDERED: NORMAL SALINE 1000 ML 1,000 ML IV ONE (22:00)
[2018-03-25] MEDS ORDERED: MORPHINE SULFATE 10 MG/ML INJ IV ONE (22:00)
[2018-03-25 22:09] LABS: ABSOLUTE BASOPHILS # (AUTO) 0.1 10^3/uL (0.0-0.2); ABSOLUTE EOSINOPHILS # (AUTO) 0.3 10^3/uL (0.0-0.6); ABSOLUTE LYMPHOCYTES (AUTO) 2.5 10^3/uL (0.5-4.7); ABSOLUTE MONOCYTES (AUTO) 0.4 10^3/uL (0.1-1.4); ABSOLUTE NEUT (AUTO) 4.7 10^3/uL (1.7-8.2); BASOPHILS % (AUTO) 1.2 % (0-2); EOSINOPHILS % (AUTO) 4.1 % (0-6); HEMATOCRIT 44.4 % (37.9-51.0); MEAN CORPUSCULAR HEMOGLOBIN 29.5 pg (27.0-33.4); MEAN CORPUSCULAR HGB CONC 33.8 g/dL (32.0-36.0); MEAN CORPUSCULAR VOLUME 87 fl (80-97); MONOCYTES % (AUTO) 5.1 % (3-13); PLATELET COUNT 201 10^3/uL (150-450); RED BLOOD COUNT 5.09 10^6/uL (4.35-5.55); RED CELL DISTRIBUTION WIDTH 14.4 % (11.5-14.0); SEGMENTED NEUTROPHILS % (AUTO) 58.6 % (42-78); TOTAL CELLS COUNTED % (AUTO) 100 %
[2018-03-25 22:28] LABS: ALANINE AMINOTRANSFERASE 24 U/L (21-72); ALBUMIN 4.3 g/dL (3.5-5.0); ALKALINE PHOSPHATASE 100 U/L (38-126); ANION GAP 14 (5-19); ASPARTATE AMINO TRANSFERASE 36 U/L (17-59); BILIRUBIN,DIRECT 0.4 mg/dL (0.0-0.4); BILIRUBIN,TOTAL 0.5 mg/dL (0.2-1.3); BLOOD UREA NITROGEN 16 mg/dL (7-20); CALCIUM 10.2 mg/dL (8.4-10.2); CARBON DIOXIDE 24 mmol/L (22-30); CHLORIDE 103 mmol/L (98-107); CREATINE KINASE 120 U/L (55-170); GLUCOSE 133 mg/dL (75-110); LIPASE 82.8 U/L (23-300); POTASSIUM 3.7 mmol/L (3.6-5.0); SODIUM 141.3 mmol/L (137-145); TOTAL PROTEIN 7.3 g/dL (6.3-8.2)
--- NOTE | 2018-03-25 22:30 | RADIOLOGY REPORT (SQ) ---
EXAM DESCRIPTION: XR CHEST 1 VIEW COMPLETED DATE/TME: 03/25/2018 21:48 CLINICAL HISTORY: 67 years, Male, syncope Findings: The heart is not enlarged. Aorta is uncoiled. No consolidation or pleural effusion. No pulmonary edema or pneumothorax. IMPRESSION: No acute disease.
[2018-03-25 22:40] LABS: CREATINE KINASE MB 1.95 ng/mL (<4.55)
[2018-03-25 22:42] LABS: TROPONIN I < 0.012 ng/mL
[2018-03-25] MEDS ORDERED: RINGERS SOLUTION,LACTATED 1,000 ML IV ONE (23:03)
[2018-03-25] MEDS ORDERED: HYDROMORPHONE HCL INJ/PF 2 MG/ML AMPULE IV ONE (23:04)
--- NOTE | 2018-03-25 23:22 | RADIOLOGY REPORT (SQ) ---
EXAM DESCRIPTION: CT ABDOMEN PELVIS WITH IV CONTRAST COMPLETED DATE/TME: 03/25/2018 22:01 CLINICAL HISTORY: 67 years, Male, diffuse abdominal pain, vomiting, hx hernia This exam was performed according to our departmental dose-optimization program which includes automated exposure control, adjustment of the mA and/or kVp according to patient size and/or use of iterative reconstruction technique where applicable. FINDINGS: Visualized lung bases are within normal limits. Liver demonstrates small multiple cysts measuring up to 1 cm. Spleen, pancreas, gallbladder, adrenal glands are within normal limits. Right kidney demonstrates a small solid-appearing nodule in the cortex measuring 1.3 cm anteriorly in the lower pole. No hydronephrosis. No dilated loops of bowel to suggest obstruction. Mild amount of stool in the colon. Moderate sigmoid diverticulosis with no inflammatory changes. No free fluid or free air. The bladder is unremarkable. There is a right inguinal hernia containing a short segment of small bowel. No abdominal or pelvic lymphadenopathy. Abdominal aorta is minimally calcified with tortuosity without aneurysm. Appendix is normal. IMPRESSION: No acute disease. Right inguinal hernia containing a short length of small bowel without obstruction. Mild sigmoid diverticulosis without CT evidence for acute diverticulitis.
[2018-03-25] MEDS ORDERED: BISACODYL 10 MG SUPP.RECT PR ONE (23:36)
[2018-03-25] MEDS ORDERED: POLYETHYLENE GLYCOL 3350 POWDER 17 GM/1 PACKET PO ONE (23:36)
[2018-03-26 00:43] VITALS: BP 137/87
--- NOTE | 2018-03-26 06:22 | EKG REPORT ---
SEVERITY:- ABNORMAL ECG - SINUS RHYTHM INCOMPLETE RBBB AND LAFB BORDERLINE PROLONGED QT INTERVAL : Confirmed by: Nathen Washington MD 26-Mar-2018 06:22:00
== END 2018-03-26 00:43 | disposition home or self-care (01) ==
LOC: ER 21:43
DX: R55 Syncope and collapse (principal); K59.00 Constipation, unspecified; K57.30 Diverticulosis of large intestine without perforation or abscess without bleeding; K76.89 Other specified diseases of liver; R19.7 Diarrhea, unspecified; K40.90 Unilateral inguinal hernia, without obstruction or gangrene, not specified as recurrent; I10 Essential (primary) hypertension; I25.10 Atherosclerotic heart disease of native coronary artery without angina pectoris; I45.2 Bifascicular block
CPT/HCPCS: 93005; 99285; 96361; 96374; 96375; 36415; 82553; 82550; 83690; 85025; 80053; 84484; 83605; 71045; 74177; 93010; A9270; J3490; J2270; J1170; J2405; J7030; J7120

== ENCOUNTER 2018-03-26 19:14 | Inpatient (IN) | payer MEDICARE ==
--- NOTE | 2018-03-26 20:51 | ER Document Report ---
ED GI/ - General Chief Complaint: Abdominal Pain Stated Complaint: ABDOMINAL PAIN Time Seen by Provider: 03/26/18 20:15 Notes: Patient is a 67-year-old male that comes to the emergency department for chief complaint of abdominal pain, rectal bleeding, he states he was evaluated yesterday and had a CAT scan which showed a right inguinal hernia with bowel loop without obstruction, he states that he has had constant pain for the past 2 days or so, he states that after he went home he started noticing some pink stools and then he had a bloody bowel movement with bright red blood. This was 30 minutes prior to arrival. Denies vomiting, fever. Past medical history of left inguinal hernia repair, right has not been repaired. Denies other abdominal surgeries. Remaining medical history includes CAD, hypertension, hyperlipidemia. TRAVEL OUTSIDE OF THE [place] IN LAST 30 DAYS: No - Related Data Allergies/Adverse Reactions: No Known Allergies Allergy (Verified 10/24/17 10:06) Past Medical History - General Information source: Patient - Social History Smoking Status: Never Smoker Frequency of alcohol use: None Drug Abuse: None Lives with: Family Family History: Hyperlipidemia, Malignancy. denies: Arthritis, CAD, COPD, CVA, DM, Hypertension, Thyroid Disfunction - Past Medical History Cardiac Medical History: Reports: Hx Coronary Artery Disease, Hx Heart Attack, Hx Hypercholesterolemia, Hx Hypertension Neurological Medical History: Reports: Hx Migraine Renal/ Medical History: Denies: Hx Peritoneal Dialysis GI Medical History: Reports: Hx Gastroesophageal Reflux Disease, Hx Hiatal Hernia, Hx Colonoscopy Musculoskeletal Medical History: Reports Hx Arthritis, Reports Hx Musculoskeletal Deformity, Reports Hx Musculoskeletal Trauma Psychiatric Medical History: Reports: Hx Bipolar Disorder, Hx Depression, Hx Obsessive Compulsive Disorder Traumatic Medical History: Reports: Hx Traumatic Brain Injury Past Surgical History: Reports: Hx Abdominal Surgery - hernia x2, Hx Cardiac Catheterization, Hx Coronary Stent, Hx Inguinal Hernia, Hx Orthopedic Surgery - Need, Hx Vascular Surgery - Took an artery out of left islam - Immunizations Immunizations up to date: Yes Hx Diphtheria, Pertussis, Tetanus Vaccination: Yes Hx Pneumococcal Vaccination: 05/15/97 Review of Systems - Review of Systems Constitutional: No symptoms reported EENT: No symptoms reported Cardiovascular: No symptoms reported Respiratory: No symptoms reported Gastrointestinal: See HPI Genitourinary: No symptoms reported Male Genitourinary: No symptoms reported Musculoskeletal: No symptoms reported Skin: No symptoms reported Hematologic/Lymphatic: No symptoms reported Neurological/Psychological: No symptoms reported Physical Exam - Vital signs Vitals: Temp Pulse Resp BP Pulse Ox 98.4 F 64 16 124/69 100 03/26/18 19:37 03/26/18 19:37 03/26/18 19:37 03/26/18 19:37 03/26/18 19:37 - Notes Notes: GENERAL: Alert, interacts well. No acute distress. HEAD: Normocephalic, atraumatic. EYES: Pupils equal, round, and reactive to light. Extraocular movements intact. ENT: Oral mucosa moist, tongue midline. Oropharynx unremarkable. Airway patent. Nares patent, no nasal septal hematoma, TM's intact. NECK: Full range of motion. Supple. Trachea midline. LUNGS: Clear to auscultation bilaterally, no wheezes, rales, or rhonchi. No respiratory distress. HEART: Regular rate and rhythm. No murmur ABDOMEN: Right inguinal hernia noted, however this is soft and reducible, there is generalized abdominal tenderness otherwise with mild distention. No overt rigidity, guarding, or rebound tenderness. RECTAL: No hemorrhoids, no gross blood noted, no noted tenderness. GENITOURINARY: No concerning findings noted EXTREMITIES: Moves all 4 extremities spontaneously. No edema, normal radial and dorsalis pedis pulses bilaterally. No cyanosis. BACK: no cervical, thoracic, lumbar midline tenderness. No saddle anesthesia, normal distal neurovascular exam. NEUROLOGICAL: Alert and oriented x3. Normal speech. [cranial nerves II through XII grossly intact]. PSYCH: Normal affect, normal mood. SKIN: Warm, dry, normal turgor. No rashes or lesions noted. Course - Re-evaluation Re-evalutation: Patient has generalized abdominal tenderness, questionable distention, mild tenderness over the right inguinal hernia, does not appear incarcerated on evaluation and is reducible. Patient does not appear to be in any distress. On rectal examination there is no active bleeding noted but there is positive Hemoccult. No obvious hemorrhoids. Based on patient's description I suspect lower GI bleed. Hemoglobin has dropped from 15-13, patient is not hypotensive or tachycardic. He is on aspirin but no other blood thinners. CBC otherwise unremarkable, lactic acid is not elevated therefore I have low suspicion of ischemic bowel with secondary bleeding. Chemistry generally unremarkable. Called and spoke with Dr. Yoly, he evaluated the patient at bedside, he feels that patient needs to be admitted for bowel prep and colonoscopy in the morning, requests hospitalist admission. I spoke with Dr. Martin, internal medicine, he states he will come evaluate the patient. Dr. Martin evaluated the patient, recommends that surgery manage the patient and he will consult. Called and spoke to Dr. Frederick, requests GoLYTELY, IV fluids, n.p.o. orders be placed. - Vital Signs Vital signs: Temp Pulse Resp BP Pulse Ox 97.3 F 83 18 138/78 H 99 03/27/18 02:48 03/27/18 02:48 03/27/18 02:48 03/27/18 02:48 03/27/18 02:48 - Laboratory Result Diagrams: 03/26/18 19:02 03/26/18 19:02 Laboratory results interpreted by me: 03/26/18 03/26/18 19:02 19:02 Hgb 13.0 L Hct 37.7 L RDW 14.1 H AST 16 L ALT 16 L Total Protein 5.8 L Albumin 3.3 L Discharge - Discharge Clinical Impression: Lower GI bleed Condition: Stable Disposition: ADMITTED INPATIENT Admitting Provider: Surgicalist Unit Admitted: Surgical Floor
[2018-03-26] MEDS ORDERED: ONDANSETRON HCL INJ/PF 4 MG/2 ML SDV IV ONE (21:09)
[2018-03-26] MEDS ORDERED: MORPHINE SULFATE 10 MG/ML INJ IV ONE (21:09)
[2018-03-26 21:21] LABS: ABSOLUTE EOSINOPHILS # (AUTO) 0.1 10^3/uL (0.0-0.6); ABSOLUTE LYMPHOCYTES (AUTO) 1.2 10^3/uL (0.5-4.7); ABSOLUTE MONOCYTES (AUTO) 0.7 10^3/uL (0.1-1.4); ABSOLUTE NEUT (AUTO) 6.6 10^3/uL (1.7-8.2); BASOPHILS % (AUTO) 0.6 % (0-2); HEMATOCRIT 37.7 % (37.9-51.0); LYMPHOCYTES % (AUTO) 13.6 % (13-45); MEAN CORPUSCULAR HEMOGLOBIN 29.9 pg (27.0-33.4); MEAN CORPUSCULAR HGB CONC 34.5 g/dL (32.0-36.0); MEAN CORPUSCULAR VOLUME 87 fl (80-97); PLATELET COUNT 151 10^3/uL (150-450); RED BLOOD COUNT 4.36 10^6/uL (4.35-5.55); RED CELL DISTRIBUTION WIDTH 14.1 % (11.5-14.0); SEGMENTED NEUTROPHILS % (AUTO) 76.8 % (42-78); TOTAL CELLS COUNTED % (AUTO) 100 %; WHITE BLOOD COUNT 8.6 10^3/uL (4.0-10.5)
[2018-03-26 22:09] LABS: ALANINE AMINOTRANSFERASE 16 U/L (21-72); ALBUMIN 3.3 g/dL (3.5-5.0); ALKALINE PHOSPHATASE 67 U/L (38-126); ANION GAP 10 (5-19); ASPARTATE AMINO TRANSFERASE 16 U/L (17-59); BILIRUBIN,DIRECT 0.3 mg/dL (0.0-0.4); BILIRUBIN,TOTAL 0.5 mg/dL (0.2-1.3); BLOOD UREA NITROGEN 16 mg/dL (7-20); CALCIUM 9.2 mg/dL (8.4-10.2); CARBON DIOXIDE 30 mmol/L (22-30); CHLORIDE 101 mmol/L (98-107); GLUCOSE 99 mg/dL (75-110); LIPASE 58.5 U/L (23-300); POTASSIUM 3.8 mmol/L (3.6-5.0); SODIUM 141.1 mmol/L (137-145); TOTAL PROTEIN 5.8 g/dL (6.3-8.2)
[2018-03-26 22:18] LABS: INTERNATIONAL RATION (INR) 1.03
[2018-03-26 22:19] LABS: PARTIAL THROMBOPLASTIN TIME 27.7 SEC (23.5-35.8)
--- NOTE | 2018-03-26 23:19 | PDOC CONSULTATION ---
Consultation Consult Date: 03/26/18 Consult reason:: gi bleed History of Present Illness Admission Date/PCP: MARU HAYWOOD MD Patient complains of: blood in the stool History of Present Illness: LUZ TADEO is a 67 year old male who was seen in the ED last night for lightheadedness noted to have diverticulosis and stool in the colon and some bowel in the right inguinal hernia without obstruction on CT scan of abdomen last night. Also c/o right inguinal hernia that is painful. He is under pain management for back pains ant takes tramadol daily as part of his pain management.. Also with history of bipolar according to his and takes Seroquel. Was given enemas last night and sent home. This am had a small amount of blood in his stools and more later before coming to ED. Rectal exam was done by ED PA and did not see gross blood but stool was positive for hemoccult. Past Medical History Cardiac Medical History: Reports: Coronary Artery Disease, Myocardial Infarction , Hyperlipidema, Hypertension Neurological Medical History: Reports: Migraine GI Medical History: Reports: Gastroesophageal Reflux Disease, Hiatal Hernia Musculoskeltal Medical History: Reports: Arthritis Psychiatric Medical History: Reports: Bipolar Disorder, Depression Psychiatric History Note: Takes Tramadol for back pains and Seoquel for sleep. Has history of Bipolar according to his Traumatic Medical History: Reports: Traumatic Brain Injury Past Surgical History Past Surgical History: Reports: Cardiac Catheterization, Coronary Stent, Orthopedic Surgery - Need, Vascular Surgery - Took an artery out of left muslim Social History Smoking Status: Unknown if Ever Smoked Frequency of Alcohol Use: None Hx Recreational Drug Use: No Drugs: None Hx Prescription Drug Abuse: No Family History Family History: Hyperlipidemia, Malignancy. denies: Arthritis, CAD, COPD, CVA, DM, Hypertension, Thyroid Disfunction Parental Family History Reviewed: Yes Children Family History Reviewed: No Sibling(s) Family History Reviewed.: No Medication/Allergy Home Medications: Aspirin [Aspirin EC] 81 mg PO QHS 10/24/17 Butalb/Acetaminophen/Caffeine [Fioricet (50-325-40 mg) Tablet] 1 tab PO DAILYP PRN 10/24/17 Fluoxetine HCl [Prozac] 40 mg PO QHS 10/24/17 Gabapentin [Neurontin] 600 mg PO Q8 10/24/17 Lisinopril [Prinivil 5 mg Tablet] 5 mg PO QHS 10/24/17 Nitroglycerin [Nitrostat 0.4 mg (1/150 Gr) Tabs 25/Bottle] 1 tab SL Q5MP PRN 05/01 Quetiapine Fumarate [Seroquel 100 mg Tablet] 100 mg PO QHS 10/24/17 Ranitidine HCl [Zantac] 300 mg PO QHS 10/24/17 Simvastatin [Zocor 20 mg Tablet] 20 mg PO QHS 10/24/17 Tramadol HCl 50 mg PO Q6HP PRN #30 tablet 10/25/17 Naproxen 500 mg PO BID PRN #60 tablet 02/23/18 Cephalexin Monohydrate [Keflex 500 mg Capsule] 500 mg PO BID #10 capsule Sulfamethoxazole/Trimethoprim [Bactrim Ds Tablet] 1 each PO BID #10 tablet 02/27 Polyethylene Glycol 3350 [Miralax] 17 gm PO DAILY #238 powder 03/25/18 Allergies/Adverse Reactions: No Known Allergies Allergy (Verified 10/24/17 10:06) Review of Systems Constitutional: PRESENT: other - denies fever/chills Eyes: PRESENT: other - no visual/hearing changes Cardiovascular: PRESENT: other - no chest pains/cough Gastrointestinal: PRESENT: other - some right inguinal pains Genitourinary: PRESENT: other - no dysuria Neurological: PRESENT: other - lightheadedness Physical Exam Vital Signs: Temp Pulse Resp BP Pulse Ox 98.4 F 64 16 129/78 H 96 03/26/18 19:37 03/26/18 19:37 03/26/18 19:37 03/26/18 21:30 03/26/18 21:30 Intake & Output 03/25/18 03/26/18 03/27/18 06:59 06:59 06:59 Weight 85.1 kg General appearance: PRESENT: mild distress Head exam: PRESENT: atraumatic Eye exam: PRESENT: conjunctiva pink Mouth exam: PRESENT: moist Neck exam: PRESENT: full ROM Respiratory exam: PRESENT: clear to auscultation lisa Cardiovascular exam: PRESENT: RRR Pulses: PRESENT: normal radial pulses GI/Abdominal exam: PRESENT: soft Rectal exam: PRESENT: heme (+) stool Extremities exam: PRESENT: full ROM Musculoskeletal exam: PRESENT: ambulatory Neurological exam: PRESENT: alert, oriented to person, oriented to place, oriented to time, oriented to situation Psychiatric exam: PRESENT: depressed Skin exam: PRESENT: normal color, warm Results Laboratory Results: 03/26/18 19:02 03/26/18 19:02 03/26/18 03/26/18 03/26/18 19:02 19:02 19:02 WBC 8.6 RBC 4.36 Hgb 13.0 L Hct 37.7 L MCV 87 MCH 29.9 MCHC 34.5 RDW 14.1 H Plt Count 151 Seg Neutrophils % 76.8 Lymphocytes % 13.6 Monocytes % 8.0 Eosinophils % 1.0 Basophils % 0.6 Absolute Neutrophils 6.6 Absolute Lymphocytes 1.2 Absolute Monocytes 0.7 Absolute Eosinophils 0.1 Absolute Basophils 0.0 Sodium 141.1 Potassium 3.8 Chloride 101 Carbon Dioxide 30 Anion Gap 10 BUN 16 Creatinine 1.10 Est GFR ( Amer) > 60 Est GFR (Non-Af Amer) > 60 Glucose 99 Lactic Acid 0.9 Calcium 9.2 Total Bilirubin 0.5 AST 16 L ALT 16 L Alkaline Phosphatase 67 Total Protein 5.8 L Albumin 3.3 L Lipase 58.5 Stool Occult Blood Blood Type Antibody Screen 03/26/18 03/26/18 19:02 21:15 WBC RBC Hgb Hct MCV MCH MCHC RDW Plt Count Seg Neutrophils % Lymphocytes % Monocytes % Eosinophils % Basophils % Absolute Neutrophils Absolute Lymphocytes Absolute Monocytes Absolute Eosinophils Absolute Basophils Sodium Potassium Chloride Carbon Dioxide Anion Gap BUN Creatinine Est GFR ( Amer) Est GFR (Non-Af Amer) Glucose Lactic Acid Calcium Total Bilirubin AST ALT Alkaline Phosphatase Total Protein Albumin Lipase Stool Occult Blood POSITIVE Blood Type B POSITIVE Antibody Screen NEGATIVE Assessment & Plan - Diagnosis (1) Right inguinal hernia Is this a current diagnosis for this admission?: Yes (2) Lower GI bleed Is this a current diagnosis for this admission?: Yes - Time Time Spent: 30 to 50 Minutes - Inpatient Certification Medical Necessity: Need Close Monitoring Due to Risk of Patient Decompensation, Need For IV Fluids, Need for Surgery, Risk of Complication if Not Cared For in Hospital - Plan Summary Plan Summary: Will place on bowel prep For colonoscopy tomorrow by Dr Pollock
[2018-03-27] MEDS ORDERED: PEG 3350/NA SULF,BICARB,CL/KCL 4000 ML PO ONE ×2 (01:12→01:41)
[2018-03-27] MEDS ORDERED: DEXTROSE 50%-WATER 25 GM/50 ML DISP.SYRIN IV PRN ×2 (01:34)
[2018-03-27] MEDS ORDERED: DEXTROSE 40% GEL 15 GM TUBE PO PRN ×2 (01:34)
[2018-03-27] MEDS ORDERED: ONDANSETRON HCL INJ/PF 4 MG/2 ML SDV IV PRN (01:34)
[2018-03-27] MEDS ORDERED: GLUCAGON,HUMAN RECOMB 1 MG INJ SUBCUT PRN (01:34)
[2018-03-27] MEDS ORDERED: PEG 3350/NA SULF,BICARB,CL/KCL 4000 ML ONE (02:59)
[2018-03-27] MEDS ORDERED: HYDROMORPHONE HCL INJ/PF 2 MG/ML AMPULE IV PRN (04:23)
[2018-03-27] MEDS: NORMAL SALINE 1000 ML 1,000 ML IV PRN ×3 (06:15→15:45)
--- NOTE | 2018-03-27 10:18 | Physician Advisory Note ---
Physician Advisor ProgressNote .: Pursuant to the plan for Caren Bridges, I have reviewed the medical record for this patient. Physician Advisor Statement: Please consider documenting, if you agree: 1. If Hgb drops to 12.0 or less, & you feel it is from bleeding: "Acute Blood Loss Anemia due to " (at that point it will be a 20% drop from Hgb 15 baseline) Status: Medicare pt, approp'ly brought in as Obs status for abd pain/LGIB without hemodynamic instability. Expectation is for scope today, with subsequent d/c home. - If new issues arise, or pt develops significant recurrent bleeding/other clinical concerns requiring a 2nd MN, please document explicitly & may then consider change to INpt status. CK
[2018-03-27] MEDS ORDERED: ONDANSETRON HCL INJ/PF 4 MG/2 ML SDV ONE (11:02)
[2018-03-27] MEDS ORDERED: GLUCAGON,HUMAN RECOMB 1 MG INJ ONE (11:03)
[2018-03-27] MEDS ORDERED: EPINEPHRINE INJ 1 MG/10 ML DISP.SYRIN ONE (11:03)
[2018-03-27] MEDS ORDERED: NALOXONE HCL INJ/PF 0.4 MG/1 ML SDV ONE (11:03)
[2018-03-27] MEDS ORDERED: FLUMAZENIL INJ 0.5 MG/5 ML VIAL ONE (11:03)
[2018-03-27] MEDS: MIDAZOLAM 2 MG/2 ML INJ ONE ×4 (11:26→11:45)
[2018-03-27] MEDS: FENTANYL CITRATE INJ/PF 100 MCG/2 ML AMPUL ONE ×2 (11:28→11:38)
--- NOTE | 2018-03-27 12:51 | Operative Report ---
Operative Report DATE OF SURGERY: 03/27/18 PREOPERATIVE DIAGNOSIS: Abdominal pain; rectal bleeding; POSTOPERATIVE DIAGNOSIS: Same with. 1. Upper rectal polyp. 2. Extensive, partial and full-thickness colonic ischemia involving the left colon OPERATION: 1. Total colonoscopy to cecum. 2. Left colonic biopsy. 3. Upper rectal polypectomy with hot snare device SURGEON: TWIN [place] ANESTHESIA: Moderate Sedation TISSUE REMOVED OR ALTERED: Biopsy left colonic mucosa AR: Upper rectal polyp COMPLICATIONS: None ESTIMATED BLOOD LOSS: Scant INTRAOPERATIVE FINDINGS: See below PROCEDURE: Obtaining informed consent the patient was taken from the preoperative holding area to the main endoscopy suite where monitoring devices were attached to the patient. Plan and surgical timeout were conducted The patient was placed in the left lateral decubitus position with knees to chest. A perianal examination was performed. There was no visible or palpable anorectal pathology. Sphincter tone was felt to be normal. The posterior surface of the prostate gland was smooth The flexible adult colonoscope was advanced through the anal rectal canal, all the way to the cecum. Utilization of the cecum was achieved and the ileocecal valve, the appendiceal orifice and transillumination of the anterior abdominal wall. Photos were taken this was an excellent study on the well-prepped bowel. The colonoscope was withdrawn slowly and methodically checked and the mucosa carefully. The findings were significant for a few scattered diverticulosis of the left colon however the predominant pathology was diffuse, intermittent, near circumferential edematous, hemorrhagic and even necrotic mucosa consistent with acute colonic ischemia. This extended from approximately 30 cm from the anal verge to approximately 55 cm. There was no evidence of stricture or joseph mass , so the likelihood of malignancy felt to be low. Intraoperative viewing by Dr. Heck confirmed the impression of ischemic colitis. Biopsy taken of the left colon at 35 cm. Bleeding minimal. There were a few scattered diverticuloses. The scope was slowly withdrawn through the anal rectal canal. In the upper rectum at approximately 18 cm from the anal verge was a small pedunculated polyp approximately 4 mm in diameter. It is photographed, snared with hot snare device, and retrieved for pathology. Bleeding was minimal. Complete visualization of the rectum was achieved with photodocumentation. The scope was withdrawn to the patient's anus. The patient tolerated the procedure well and was taken to the recovery area in stable condition. Impression: Acute left-sided ischemic colitis Recommendations: 1. Discussed case with Dr. Frederick; we will recruit internal medicine to assist with medical management 2. Patient may require surveillance colonoscopy if patient deteriorates 4.. Findings above and photos discussed and provided to patient's
[2018-03-27] MEDS ORDERED: BUTALB/ACETAMINOPHEN/CAFFEINE 1 TAB EACH PO PRN (18:42)
[2018-03-27] MEDS ORDERED: TRAMADOL HCL 50 MG TABLET PO PRN (18:42)
[2018-03-27] MEDS ORDERED: NITROGLYCERIN 0.4 MG/TAB 25 TAB/BOTTLE SL PRN (18:42)
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
[2018-03-27] MEDS: FLUOXETINE HCL 20 MG CAPSULE PO SCH (22:09)
[2018-03-27] MEDS: QUETIAPINE FUMARATE 100 MG TABLET PO SCH (22:09)
[2018-03-27] MEDS: SIMVASTATIN 10 MG TABLET PO SCH (22:09)
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
--- NOTE | 2018-03-28 11:08 | PDOC PROGRESS REPORT ---
Subjective Progress Note for:: 03/28/18 Subjective:: Feels well. Still has tenderness in his left lower abdomen. No bowel movements in the last 24 hours. Reason For Visit: GI BLEED LOWER RIGHT INGUINAL HERNIA BIPOLAR Physical Exam Vital Signs: Temp Pulse Resp BP Pulse Ox 98.2 F 63 18 116/72 97 03/28/18 06:52 03/28/18 06:52 03/28/18 06:52 03/28/18 06:52 03/28/18 06:52 Intake & Output 03/27/18 03/28/18 03/29/18 06:59 06:59 06:59 Intake Total 2500 1200 Output Total 900 Balance 2500 300 Weight 81.5 kg 83 kg General appearance: PRESENT: no acute distress, cooperative Respiratory exam: PRESENT: clear to auscultation lisa Cardiovascular exam: PRESENT: RRR GI/Abdominal exam: PRESENT: other - Soft, nondistended, tenderness to palpation in the left lateral lower abdomen without peritoneal signs. Results Laboratory Results: 03/27/18 20:00 Lactic Acid 1.1 Assessment & Plan - Diagnosis (1) Acute ischemic colitis Is this a current diagnosis for this admission?: Yes Plan: Likely microvascular etiology. Patient still with tenderness. Will place him on Levaquin and Flagyl and we will not advance his diet until his exam has improved.
[2018-03-28] MEDS ORDERED: LEVOFLOXACIN 500 MG/D5W RTU 500 MG/100 ML RTUPB IV SCH (12:00)
[2018-03-28] MEDS: METRONIDAZOLE 500 MG TABLET PO SCH ×2 (12:16→17:17)
--- NOTE | 2018-03-28 15:17 | PSYCHOLOGICAL NOTE ---
Psych Note - Psych Note Date seen by psych provider: 03/28/18 Time seen by psych provider: 11:50 Psych Note: Reason for Consult: LUZ TADEO is a 67 year old male past medical history of hypertension,Psych disorder, prior syncope, constipation, CAD and chronic pain-who presented to the ED on 03/26/18 complaining of lower GI bleed. No medication recommendations at this time 296.80 (F31.9) unspecified bipolar and related disorder per history provided by patient 300.3 (F42) obsessive-compulsive disorder per history provided by patient Impression\plan: Patient is cleared from acute psychiatric services. He reports that he has diagnosis of bipolar and obsessive-compulsive disorder. He has been on medication for many years and has had not required inpatient psychiatric treatment since 1998. Patient states he is compliant with his medications and has no concerns at this time. Patient's reports she has no concerns for the patient. She discloses they support each other in their diagnosis and work together [id number] with their attending physicians to ensure stabilization maintains. Patient denies suicidal and homicidal ideations. Patient does not meet IVC criteria per [place] GS 122C. At this time patient is recommended to continue with his outpatient provider as patient appears to have maintained stabilization for almost 10 years on the same regiment. Patient was interested in receiving information on outpatient therapeutic services; this list has been provided. Dr. Kenney was consulted and the care and management of this patient; attending physicians in agreement with recommendations and disposition.
--- NOTE | 2018-03-28 17:40 | XCELERA REPORT ---
[address] [address] Transthoracic Echocardiogram Report Name: LUZ TADEO Age: 67 yrs Gender: Male : 1950 Patient Status: In[facility] Study Date: 03/28/2018 10:13 AM Height: 68 in Weight: 179 lb BSA: 1.9 m2 Procedure: A complete two-dimensional transthoracic echocardiogram was performed (2D, M-mode, spectral and color flow Doppler). The study was technically adequate with some images being suboptimal in quality. Reason For Study: acute ischemic colitis Ordering Physician: NOELLE BUTLER Performed By: Anisa Reyes Interpretation Summary The right ventricular systolic function is normal. There is borderline concentric left ventricular hypertrophy. The left ventricle is grossly normal size. Doppler measurements suggest pseudonormalized left ventricular relaxation, which is associated with grade II/IV or mild to moderate diastolic dysfunction Wall motion cannot be accurately commented on, but no definite regional wall motion abnormalities noted. The right atrium is normal in size There is a trace amount of mitral regurgitation There is no mitral valve stenosis. There is no aortic valve stenosis No aortic regurgitation is present. There is a trace or physiologic amount of tricuspid regurgitation Tricuspid regurgitation jet envelope not well defined to measure RV systolic pressure accurately. The aortic root is not well visualized but is probably normal size. The inferior vena cava appeared normal and decreased > 50% with respiration (RAP 5-10 mmHg) Minimal pericardial effusion. MMode/2D Measurements & Calculations RVDd: 2.4 cm LVIDd: 5.4 cm FS: 40.5 % Ao root diam: 3.5 cm IVSd: 0.89 cm LVIDs: 3.2 cm EDV(Teich): 140.4 ml Ao root area: 9.8 cm2 LVPWd: 0.91 cm ESV(Teich): 41.0 ml LA dimension: 3.9 cm EF(Teich): 70.8 % Doppler Measurements & Calculations MV E max tasha: MV P1/2t max tasha: Ao V2 max: LV V1 max P.3 cm/sec 72.3 cm/sec 101.3 cm/sec 2.7 mmHg MV A max tasha: MV P1/2t: 76.8 msec Ao max PG: LV V1 max: 91.6 cm/sec MVA(P1/2t): 2.9 cm2 4.1 mmHg 82.1 cm/sec MV E/A: 0.80 MV dec slope: 275.6 cm/sec2 MV dec time: 0.30 sec PA V2 max: PI end-d tasha: TR max tasha: MV P1/2t-pr_phl: 75.0 cm/sec 102.8 cm/sec 192.0 cm/sec 82.3 msec PA max PG: TR max P.3 mmHg 14.7 mmHg Left Ventricle The left ventricle is grossly normal size. There is borderline concentric left ventricular hypertrophy. Left ventricular systolic function is low normal. Doppler measurements suggest pseudonormalized left ventricular relaxation, which is associated with grade II/IV or mild to moderate diastolic dysfunction. Wall motion cannot be accurately commented on, but no definite regional wall motion abnormalities noted. Right Ventricle The right ventricle is grossly normal size. There is normal right ventricular wall thickness. The right ventricular systolic function is normal. Atria The right atrium is normal in size. The left atrial size is normal. Interarterial septum not well visualized and not well dopplered. Cannot comment on ASD/PFO presence. Mitral Valve The mitral valve is grossly normal. There is no mitral valve stenosis. There is a trace amount of mitral regurgitation. Aortic Valve The aortic valve is grossly normal. There is no aortic valve stenosis. No aortic regurgitation is present. Tricuspid Valve The tricuspid valve is not well visualized, but is grossly normal. There is no tricuspid stenosis. There is a trace or physiologic amount of tricuspid regurgitation. Tricuspid regurgitation jet envelope not well defined to measure RV systolic pressure accurately. Pulmonic Valve The pulmonic valve is not well visualized. Great Vessels The aortic root is not well visualized but is probably normal size. The inferior vena cava appeared normal and decreased > 50% with respiration (RAP 5-10 mmHg). Effusions Minimal pericardial effusion. : NOELLE BUTLER > Meron Villalta
--- NOTE | 2018-03-28 20:10 | PDOC PROGRESS REPORT ---
Subjective Progress Note for:: 03/28/18 Subjective:: Patient is feeling much better this evening. He has minimal tenderness in the left lower quadrant and the remainder of his abdomen is nontender. He reports having 2 bowel movements today without difficulty. Reason For Visit: GI BLEED LOWER RIGHT INGUINAL HERNIA BIPOLAR Physical Exam Vital Signs: Temp Pulse Resp BP Pulse Ox 98.5 F 65 17 143/86 H 100 03/28/18 16:50 03/28/18 16:50 03/28/18 16:50 03/28/18 16:50 03/28/18 16:50 Intake & Output 03/27/18 03/28/18 03/29/18 06:59 06:59 06:59 Intake Total 2500 1200 100 Output Total 900 Balance 2500 300 100 Weight 81.5 kg 83 kg General appearance: PRESENT: no acute distress, cooperative, well-developed, well-nourished Eye exam: PRESENT: conjunctiva pink, EOMI. ABSENT: scleral icterus Ear exam: PRESENT: normal external ear exam Neck exam: ABSENT: carotid bruit, JVD, lymphadenopathy Respiratory exam: PRESENT: clear to auscultation lisa, symmetrical, unlabored. ABSENT: rales, rhonchi, wheezes Cardiovascular exam: PRESENT: RRR, +S1, +S2 GI/Abdominal exam: PRESENT: normal bowel sounds, soft, tenderness - Very limited to left lower quadrant. ABSENT: distended, guarding Extremities exam: ABSENT: calf tenderness, pedal edema, tenderness Musculoskeletal exam: PRESENT: normal inspection Neurological exam: PRESENT: alert, awake, oriented to person, oriented to place , oriented to situation, CN II-XII grossly intact Psychiatric exam: PRESENT: appropriate affect, normal mood. ABSENT: agitated, anxious Focused psych exam: ABSENT: delusional, paranoid, restlessness Skin exam: PRESENT: dry, intact, warm. ABSENT: cyanosis, rash Results Laboratory Results: 03/27/18 20:00 Lactic Acid 1.1 Assessment & Plan - Diagnosis (1) Acute ischemic colitis Is this a current diagnosis for this admission?: Yes Plan: The patient did have a colonoscopy today. Biopsies were taken. He also had a polypectomy. He had 2 bowel movements today and there is minimal tenderness. Bowel sounds are positive. I have advanced his diet to full liquids. He has been tolerating clear liquids since admission. The patient's intravenous Levaquin has been changed to oral administration. He is now on oral Flagyl and Levaquin. (2) Lower GI bleed Is this a current diagnosis for this admission?: Yes Plan: The patient reports no further joseph blood per rectum. I have ordered a repeat hemoglobin for tomorrow. (3) Essential hypertension Is this a current diagnosis for this admission?: Yes Plan: Blood pressures have been variable but none exceptionally abnormal. Continue current regimen. - Time Time Spent with patient: 15-24 minutes Medications reviewed and adjusted accordingly: Yes
[2018-03-28] MEDS: NORMAL SALINE 1000 ML 1,000 ML IV PRN (21:52)
[2018-03-28] MEDS: FLUOXETINE HCL 20 MG CAPSULE PO SCH (21:55)
[2018-03-28] MEDS: SIMVASTATIN 10 MG TABLET PO SCH (21:56)
[2018-03-28] MEDS: QUETIAPINE FUMARATE 100 MG TABLET PO SCH (21:56)
[2018-03-29] MEDS: METRONIDAZOLE 500 MG TABLET PO SCH ×3 (01:25→13:18)
[2018-03-29 04:35] LABS: ABSOLUTE BASOPHILS # (AUTO) 0.1 10^3/uL (0.0-0.2); ABSOLUTE EOSINOPHILS # (AUTO) 0.2 10^3/uL (0.0-0.6); ABSOLUTE LYMPHOCYTES (AUTO) 1.1 10^3/uL (0.5-4.7); ABSOLUTE MONOCYTES (AUTO) 0.4 10^3/uL (0.1-1.4); ABSOLUTE NEUT (AUTO) 4.4 10^3/uL (1.7-8.2); BASOPHILS % (AUTO) 0.9 % (0-2); EOSINOPHILS % (AUTO) 2.9 % (0-6); HEMATOCRIT 35.8 % (37.9-51.0); HEMOGLOBIN 12.4 g/dL (13.5-17.0); LYMPHOCYTES % (AUTO) 18.5 % (13-45); MEAN CORPUSCULAR HEMOGLOBIN 29.9 pg (27.0-33.4); MEAN CORPUSCULAR HGB CONC 34.6 g/dL (32.0-36.0); MEAN CORPUSCULAR VOLUME 87 fl (80-97); MONOCYTES % (AUTO) 6.1 % (3-13); PLATELET COUNT 146 10^3/uL (150-450); RED BLOOD COUNT 4.13 10^6/uL (4.35-5.55); RED CELL DISTRIBUTION WIDTH 14.3 % (11.5-14.0); SEGMENTED NEUTROPHILS % (AUTO) 71.6 % (42-78); TOTAL CELLS COUNTED % (AUTO) 100 %; WHITE BLOOD COUNT 6.1 10^3/uL (4.0-10.5)
[2018-03-29] MEDS: NORMAL SALINE 1000 ML 1,000 ML IV PRN (05:40)
[2018-03-29] MEDS ORDERED: LEVOFLOXACIN 750 MG TABLET PO SCH (10:00)
--- NOTE | 2018-03-29 11:08 | PDOC PROGRESS REPORT ---
Subjective Progress Note for:: 03/29/18 Subjective:: Feels well. Decreased abdominal pain. Having nonbloody bowel movements. Tolerating a diet well. Reason For Visit: GI BLEED LOWER RIGHT INGUINAL HERNIA BIPOLAR Physical Exam Vital Signs: Temp Pulse Resp BP Pulse Ox 98.2 F 63 15 130/86 H 100 03/29/18 08:06 03/29/18 08:06 03/29/18 08:06 03/29/18 08:06 03/29/18 08:06 Intake & Output 03/28/18 03/29/18 03/30/18 06:59 06:59 06:59 Intake Total 1200 1595 Output Total 900 Balance 300 1595 Weight 83 kg 83.3 kg General appearance: PRESENT: no acute distress, cooperative Respiratory exam: PRESENT: clear to auscultation lisa Cardiovascular exam: PRESENT: RRR GI/Abdominal exam: PRESENT: other - Soft, nondistended, very mild left lower quadrant abdominal tenderness that is much improved from yesterday. Extremities exam: PRESENT: other - No swelling and no tenderness Results Laboratory Results: 03/29/18 04:17 03/29/18 04:17 WBC 6.1 RBC 4.13 L Hgb 12.4 L Hct 35.8 L MCV 87 MCH 29.9 MCHC 34.6 RDW 14.3 H Plt Count 146 L Seg Neutrophils % 71.6 Lymphocytes % 18.5 Monocytes % 6.1 Eosinophils % 2.9 Basophils % 0.9 Absolute Neutrophils 4.4 Absolute Lymphocytes 1.1 Absolute Monocytes 0.4 Absolute Eosinophils 0.2 Absolute Basophils 0.1 Assessment & Plan - Diagnosis (1) Acute ischemic colitis Is this a current diagnosis for this admission?: Yes Plan: Improved with good toleration of diet and less pain and less tenderness and resolution of blood per rectum. Will discharge patient home with Levaquin and Flagyl for a few more days. Follow-up with Dr. Pollock in a couple weeks.
--- NOTE | 2018-03-29 11:36 | DISCHARGE SUMMARY E ---
Discharge Summary NAME: LUZ TADEO : 1950 AGE: 67Y ADMITTED: 03/26/2018 DISCHARGED: 03/29/2018 DISCHARGE DIAGNOSIS: ISCHEMIC COLITIS. PROCEDURE PERFORMED DURING HOSPITALIZATION: Colonoscopy with biopsies performed by Dr. Pollock on 03/27/2018. HOSPITAL COURSE: Patient underwent colonoscopy which demonstrated evidence of ischemic colitis with extensive ischemic changes involving the left colon. Patient was managed conservatively. Patient did well with resolution of his blood per rectum. He had marked improvement of his abdominal pain and tenderness. Echocardiogram demonstrated no evidence of vegetations. Patient was placed on Levaquin and Flagyl. Patient is now being discharged to home in good condition. He will follow up with Dr. Pollock in a couple of weeks. He may follow a cardiac diet at home. Patient is to call for increased abdominal pain or moderate to severe blood per rectum or any other concerns. Of note, a psychiatry consultation was obtained during the hospital stay and Psychiatry cleared him from acute psychiatric services. He does have a history of bipolar and obsessive compulsive disorder. Outpatient service information was given to the patient. He may resume his home medications. ADDITIONAL MEDICATIONS: 1. Levaquin 500 mg 1 p.o. daily for 5 days. 2. Flagyl 500 mg 1 p.o. t.i.d. for 5 days. DICTATING PHYSICIAN: BEVERLY ANG M.D. [id number] PHY#: [id number] ID: [id number] JOB#: [id number] ACCT: [id number] cc:Donovan ROPER M.D. > MTDD
[2018-03-29 12:09] VITALS: BP 135/73
== END 2018-03-29 13:30 | disposition home or self-care (01) | DRG 394 ==
LOC: ER 19:14 → INTOOBSV 23:40 → EH 23:40 → 5 03-27 02:30 → OBSVTOIN 03-28 14:55
PROVIDERS: ADMIT Surgery; ATTEND Surgery
PROC: 0DDM8ZX Extraction of Descending Colon, Via Natural or Artificial Opening Endoscopic, Diagnostic (ICD-10-PCS; principal; 2018-03-27 12:00)
PROC: 0DBP8ZZ Excision of Rectum, Via Natural or Artificial Opening Endoscopic (ICD-10-PCS; 2018-03-27 12:00)
DX: K55.039 Acute (reversible) ischemia of large intestine, extent unspecified (principal); K92.2 Gastrointestinal hemorrhage, unspecified; K62.1 Rectal polyp; I25.10 Atherosclerotic heart disease of native coronary artery without angina pectoris; K40.90 Unilateral inguinal hernia, without obstruction or gangrene, not specified as recurrent; K21.9 Gastro-esophageal reflux disease without esophagitis; I10 Essential (primary) hypertension; E78.5 Hyperlipidemia, unspecified; G43.909 Migraine, unspecified, not intractable, without status migrainosus; F42.9 Obsessive-compulsive disorder, unspecified; F31.9 Bipolar disorder, unspecified; I25.2 Old myocardial infarction; Z87.820 Personal history of traumatic brain injury
CPT/HCPCS: 36415; 45380; 45385; 80053; 82272; 83605; 83690; 85025; 85610; 85730; 86850; 86900; 86901; 88305; 93306; 96374; 96375; 99285; G0378; J0171; J1610; J1956; J2250; J2270; J2310; J2405; J3010; J3490; J7030

== ENCOUNTER 2018-08-26 10:26 | Emergency (ER) | payer BC, MEDICARE ==
[2018-08-26] MEDS ORDERED: KETOROLAC TROMETHAMINE 60 MG/2 ML SDV IM ONE (10:51)
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
--- NOTE | 2018-08-26 11:28 | RADIOLOGY REPORT (SQ) ---
EXAM DESCRIPTION: HAND LEFT 3 VIEWS COMPLETED DATE/TIME: 08/26/2018 11:10 am REASON FOR STUDY: left hand pain COMPARISON: None. NUMBER OF VIEWS: Three views left hand. LIMITATIONS: None. FINDINGS: Normal bone density. Mild osteoarthritis in the thumb base, IP joints and MP joints. No fracture or bone lesion. OTHER: No other significant finding. IMPRESSION: No acute radiographic abnormality. TECHNICAL DOCUMENTATION: JOB ID: [id number] Reading location - IP[facility]workstation [facility]: [facility]
[2018-08-26 11:55] VITALS: BP 121/82
== END 2018-08-26 11:52 | disposition home or self-care (01) ==
LOC: ER 10:26
DX: M18.12 Unilateral primary osteoarthritis of first carpometacarpal joint, left hand (principal); M79.645 Pain in left finger(s); M25.532 Pain in left wrist; I25.10 Atherosclerotic heart disease of native coronary artery without angina pectoris; I10 Essential (primary) hypertension
CPT/HCPCS: 99283; 96372; 73130; J1885

== ENCOUNTER 2018-09-03 09:25 | Emergency (ER) | payer BC, MEDICARE ==
--- NOTE | 2018-09-03 09:51 | ER Document Report ---
ED Medical Screen (RME) - General Chief Complaint: Flank Pain Stated Complaint: FLANK PAIN Time Seen by Provider: 09/03/18 09:46 Primary Care Provider: MARU HAYWOOD MD [Primary Care Provider] - Follow up as needed TRAVEL OUTSIDE OF THE [place] IN LAST 30 DAYS: No - HPI Patient complains to provider of: right flank pain Notes: 09/03/18 09:50 Patient here with complaints of right flank pain. The patient states the pain is been present for about a month. Pain seems to progressively be getting worse. Pain is constant, seems to be worse when he is lying down on the right side. He denies any nausea, vomiting, diarrhea. No dysuria or hematuria. No fever. Exam No distress, nontoxic-appearing. Lungs are clear and equal throughout. Heart sounds are normal. No abdominal tenderness on limited triage exam. No CVA tenderness to percussion. Plan CBC, CMP, lipase, urine. Patient will be seen in evaluated by provider in the back to determine if advanced imaging is indicated. An initial examination was made on the patient as part of the triage process, and it was determined a more comprehensive evaluation was necessary. Initial labs were ordered and patient was transferred to another provider in the ED who assumed care and finished evaluation and plan. - Related Data Allergies/Adverse Reactions: No Known Allergies Allergy (Verified 09/03/18 09:27) Past Medical History - Social History Chew tobacco use (# tins/day): No Frequency of alcohol use: None Drug Abuse: None - Past Medical History Cardiac Medical History: Reports: Hx Coronary Artery Disease, Hx Heart Attack, Hx Hypercholesterolemia, Hx Hypertension Neurological Medical History: Reports: Hx Migraine. Denies: Hx Seizures Renal/ Medical History: Denies: Hx Peritoneal Dialysis GI Medical History: Reports: Hx Gastroesophageal Reflux Disease, Hx Hiatal Hernia, Hx Colonoscopy Musculoskeltal Medical History: Reports Hx Arthritis, Reports Hx Musculoskeletal Deformity, Reports Hx Musculoskeletal Trauma Psychiatric Medical History: Reports: Hx Bipolar Disorder, Hx Depression, Hx Obsessive Compulsive Disorder Traumatic Medical History: Reports: Hx Traumatic Brain Injury Past Surgical History: Reports: Hx Abdominal Surgery - hernia x2, Hx Cardiac Catheterization, Hx Coronary Stent, Hx Inguinal Hernia, Hx Orthopedic Surgery - Need, Hx Vascular Surgery - Took an artery out of left uatsdin - Immunizations Immunizations up to date: Yes Hx Diphtheria, Pertussis, Tetanus Vaccination: Yes History of Influenza Vaccine for 02/2017 - 07/2017 Season: Unknown Physical Exam - Vital signs Vitals: Temp Pulse Resp BP Pulse Ox 98.1 F 70 14 117/86 H 100 09/03/18 09:28 09/03/18 09:28 09/03/18 09:28 09/03/18 09:28 09/03/18 09:28 Course - Vital Signs Vital signs: Temp Pulse Resp BP Pulse Ox 98.1 F 70 14 117/86 H 100 09/03/18 09:28 09/03/18 09:28 09/03/18 09:28 09/03/18 09:28 09/03/18 09:28 Doctor's Discharge - Discharge Referrals: MARU HAYWOOD MD [Primary Care Provider] - Follow up as needed
[2018-09-03 10:23] LABS: ABSOLUTE EOSINOPHILS # (AUTO) 0.2 10^3/uL (0.0-0.6); ABSOLUTE LYMPHOCYTES (AUTO) 1.3 10^3/uL (0.5-4.7); ABSOLUTE MONOCYTES (AUTO) 0.3 10^3/uL (0.1-1.4); ABSOLUTE NEUT (AUTO) 2.2 10^3/uL (1.7-8.2); BASOPHILS % (AUTO) 0.7 % (0-2); EOSINOPHILS % (AUTO) 5.5 % (0-6); HEMATOCRIT 40.3 % (37.9-51.0); HEMOGLOBIN 13.7 g/dL (13.5-17.0); LYMPHOCYTES % (AUTO) 30.9 % (13-45); MEAN CORPUSCULAR HEMOGLOBIN 29.6 pg (27.0-33.4); MEAN CORPUSCULAR VOLUME 87 fl (80-97); MONOCYTES % (AUTO) 8.3 % (3-13); PLATELET COUNT 221 10^3/uL (150-450); RED BLOOD COUNT 4.63 10^6/uL (4.35-5.55); RED CELL DISTRIBUTION WIDTH 14.2 % (11.5-14.0); SEGMENTED NEUTROPHILS % (AUTO) 54.6 % (42-78); TOTAL CELLS COUNTED % (AUTO) 100 %
[2018-09-03 10:48] LABS: ALANINE AMINOTRANSFERASE 24 U/L (21-72); ALBUMIN 3.7 g/dL (3.5-5.0); ALKALINE PHOSPHATASE 82 U/L (38-126); ANION GAP 6 (5-19); ASPARTATE AMINO TRANSFERASE 36 U/L (17-59); BILIRUBIN,DIRECT 0.3 mg/dL (0.0-0.4); BILIRUBIN,TOTAL 0.5 mg/dL (0.2-1.3); BLOOD UREA NITROGEN 10 mg/dL (7-20); CALCIUM 9.3 mg/dL (8.4-10.2); CARBON DIOXIDE 23 mmol/L (22-30); CHLORIDE 108 mmol/L (98-107); GLUCOSE 124 mg/dL (75-110); SODIUM 137.4 mmol/L (137-145); TOTAL PROTEIN 6.6 g/dL (6.3-8.2)
--- NOTE | 2018-09-03 11:24 | ER Document Report ---
ED General - General Chief Complaint: Flank Pain Stated Complaint: FLANK PAIN Time Seen by Provider: 09/03/18 09:46 Primary Care Provider: MARU HAYWOOD MD [Primary Care Provider] - Follow up as needed TRAVEL OUTSIDE OF THE [place] IN LAST 30 DAYS: No - HPI Notes: Patient is a 67-year-old male that presents to the emergency department for chief complaint of right low back pain. Patient reports constant pain in his right lower back for the last month. He states it is a achy sensation that is worse when he lays flat on his back. He states it feels better when he pulls his right knee into his chest. He denies injury or trauma. He denies saddle anesthesia, bowel or bladder incontinence, fevers and chills. He denies any difficulty urinating and hematuria. He states he is in pain management for chronic back pain and has Ultram and hydrocodone that he takes intermittently at home for his symptoms. He states these medications give temporary relief. Past Medical History: Chronic back pain Past Surgical History: Reviewed in chart Social History: Reviewed in chart Family History: Reviewed and noncontributory for presenting illness Allergies: Reviewed, see documented allergy list. REVIEW OF SYSTEMS: CONSTITUTIONAL : No fever No chills No diaphoresis No recent illness EENT: No vision changes No congestion No sore throat CARDIOVASCULAR: No chest pain No palpitations RESPIRATORY: No shortness of breath No cough No difficulty breathing GASTROINTESTINAL: No abdominal pain No nausea No vomiting No diarrhea GENITOURINARY: No dysuria No hematuria No difficulty urinating MUSCULOSKELETAL: back pain No leg pain No arm pain SKIN: No rashes No lesions LYMPHATIC: No swollen, enlarged glands. NEUROLOGICAL: No lightheadedness No headache No weakness No paresthesias PSYCHIATRIC: No anxiety No depression PHYSICAL EXAMINATION: Vital signs reviewed, nursing noted reviewed. GENERAL: Well-appearing, well-nourished and in no acute distress. HEAD: Atraumatic, normocephalic. EYES: Eyes appear normal, extraocular movements intact, sclera anicteric, conjunctiva are normal. ENT: nares patent, oropharynx clear without exudates. Moist mucous membranes. NECK: Normal range of motion, supple without lymphadenopathy LUNGS: Breath sounds clear to auscultation bilaterally and equal. No wheezes rales or rhonchi. HEART: Regular rate and rhythm without murmurs ABDOMEN: Soft, nontender, normoactive bowel sounds. No rebound, guarding, or rigidity. No masses appreciated. Back: No midline spinal tenderness. No sacral tenderness. Normal range of motion of the spine. Right paraspinal muscle tenderness at the insertion site on the iliac crest. EXTREMITIES: Nontender, good range of motion, no pitting or edema. Normal gait NEUROLOGICAL: No focal neurological deficits. Moves all extremities spontaneou sly Motor and sensory grossly intact on exam. PSYCH: Normal mood, normal affect. SKIN: Warm, Dry, normal turgor, no rashes or lesions noted on exposed skin - Related Data Allergies/Adverse Reactions: No Known Allergies Allergy (Verified 09/03/18 09:27) Past Medical History - Social History Smoking Status: Never Smoker Chew tobacco use (# tins/day): No Frequency of alcohol use: None Drug Abuse: None Family History: Hyperlipidemia, Malignancy - Pancreatic cancer in father. denies: Arthritis, CAD, COPD, CVA, DM, Hypertension, Thyroid Disfunction Patient has suicidal ideation: No Patient has homicidal ideation: No - Past Medical History Cardiac Medical History: Reports: Hx Coronary Artery Disease, Hx Heart Attack, Hx Hypercholesterolemia, Hx Hypertension Neurological Medical History: Reports: Hx Migraine. Denies: Hx Seizures Renal/ Medical History: Denies: Hx Peritoneal Dialysis GI Medical History: Reports: Hx Gastroesophageal Reflux Disease, Hx Hiatal Hernia, Hx Colonoscopy Musculoskeletal Medical History: Reports Hx Arthritis, Reports Hx Musculoskeletal Deformity, Reports Hx Musculoskeletal Trauma Psychiatric Medical History: Reports: Hx Bipolar Disorder, Hx Depression, Hx Obsessive Compulsive Disorder Traumatic Medical History: Reports: Hx Traumatic Brain Injury Past Surgical History: Reports: Hx Abdominal Surgery - hernia x2, Hx Cardiac Catheterization, Hx Coronary Stent, Hx Inguinal Hernia, Hx Orthopedic Surgery - Need, Hx Vascular Surgery - Took an artery out of left anabaptism - Immunizations Immunizations up to date: Yes Hx Diphtheria, Pertussis, Tetanus Vaccination: Yes Hx Pneumococcal Vaccination: 05/15/97 Physical Exam - Vital signs Vitals: Temp Pulse Resp BP Pulse Ox 98.1 F 70 14 117/86 H 100 09/03/18 09:28 09/03/18 09:28 09/03/18 09:28 09/03/18 09:28 09/03/18 09:28 Course - Re-evaluation Re-evalutation: 09/03/18 11:24 Vitals reviewed. Nursing notes reviewed. Patient has a normal gait with no focal neurologic deficits. He has no tenderness midline in his entire spine. Patient does have tenderness on his low right lumbar region. This does reproduce the symptoms he has been experiencing. His lab work today shows normal renal function with no leukocytosis or other signs of infection. 09/03/18 11:37 Patient's urinalysis is negative for infection or blood. Without hematuria and since his pain is reproducible I am not suspicious for ureterolithiasis. His pain is reproducible with movement and palpation likely musculoskeletal in nature. He will be discharged home in stable condition. He was given Toradol in the emergency room for symptomatic management. He has a prescription for hydrocodone and Ultram at home and is currently in pain management, he will continue to take his chronic pain medicines for symptomatic control at home. He was counseled on return precautions and was discharged in stable condition. Laboratory 09/03/18 09/03/18 09/03/18 10:01 10:01 11:05 WBC 4.0 RBC 4.63 Hgb 13.7 Hct 40.3 MCV 87 MCH 29.6 MCHC 34.0 RDW 14.2 H Plt Count 221 Seg Neutrophils % 54.6 Lymphocytes % 30.9 Monocytes % 8.3 Eosinophils % 5.5 Basophils % 0.7 Absolute Neutrophils 2.2 Absolute Lymphocytes 1.3 Absolute Monocytes 0.3 Absolute Eosinophils 0.2 Absolute Basophils 0.0 Sodium 137.4 Potassium 4.0 Chloride 108 H Carbon Dioxide 23 Anion Gap 6 BUN 10 Creatinine 1.02 Est GFR ( Amer) > 60 Est GFR (Non-Af Amer) > 60 Glucose 124 H Calcium 9.3 Total Bilirubin 0.5 Direct Bilirubin 0.3 Neonat Total Bilirubin Not Reportable Neonat Direct Bilirubin Not Reportable Neonat Indirect Bili Not Reportable AST 36 ALT 24 Alkaline Phosphatase 82 Total Protein 6.6 Albumin 3.7 Lipase 50.0 Urine Color STRAW Urine Appearance CLEAR Urine pH 6.0 Ur Specific [place] 1.004 Urine Protein NEGATIVE Urine Glucose (UA) NEGATIVE Urine Ketones NEGATIVE Urine Blood NEGATIVE Urine Nitrite NEGATIVE Urine Bilirubin NEGATIVE Urine Urobilinogen NEGATIVE Ur Leukocyte Esterase NEGATIVE Urine WBC (Auto) 1 Urine RBC (Auto) 0 Urine Mucus (Auto) RARE Urine Ascorbic Acid NEGATIVE - Vital Signs Vital signs: Temp Pulse Resp BP Pulse Ox 98.1 F 70 14 117/86 H 100 09/03/18 09:28 09/03/18 09:28 09/03/18 09:28 09/03/18 09:28 09/03/18 09:28 - Laboratory Result Diagrams: 09/03/18 10:01 09/03/18 10:01 Laboratory results interpreted by me: 09/03/18 09/03/18 10:01 10:01 RDW 14.2 H Chloride 108 H Glucose 124 H Discharge - Discharge Clinical Impression: Right low back pain Qualifiers: Chronicity: acute Sciatica presence: without sciatica Qualified Code(s): M54.5 - Low back pain Condition: Stable Disposition: HOME, SELF-CARE Instructions: Low Back Pain ([facility]) Additional Instructions: Please return to the emergency department if you have any worsening, or concern of your symptoms. Please return to the emergency department if you develop chest pain, difficulty breathing, severe abdominal pain, or ongoing vomiting. Please follow-up with your primary care physician in 2-3 days and any other recommended physicians. If prescribed, take all medications as directed. If you have any questions or concerns do not hesitate to return the emergency department for evaluation. Referrals: MARU HAYWOOD MD [Primary Care Provider] - Follow up as needed
[2018-09-03 11:25] LABS: APPEARANCE,URINE CLEAR; BILIRUBIN,URINE NEGATIVE (NEGATIVE); COLOR,URINE STRAW; GLUCOSE, URINE NEGATIVE (NEGATIVE); KETONES,URINE NEGATIVE (NEGATIVE); LEUKOCYTE ESTERASE,URINE NEGATIVE (NEGATIVE); NITRITE,URINE NEGATIVE (NEGATIVE); PROTEIN,URINE NEGATIVE (NEGATIVE); URINE SPECIFIC GRAVITY 1.004; UROBILINOGEN,URINE NEGATIVE mg/dL (<2.0)
[2018-09-03] MEDS ORDERED: KETOROLAC TROMETHAMINE INJ/PF 30 MG/1 ML SDV IM ONE (11:37)
[2018-09-03] MEDS ORDERED: KETOROLAC TROMETHAMINE INJ/PF 30 MG/1 ML SDV IV ONE (11:41)
[2018-09-03 11:56] VITALS: BP 126/80
== END 2018-09-03 11:56 | disposition home or self-care (01) ==
LOC: ER 09:25
DX: M54.5 Low back pain (principal); G89.29 Other chronic pain; I25.10 Atherosclerotic heart disease of native coronary artery without angina pectoris; I10 Essential (primary) hypertension; Z95.5 Presence of coronary angioplasty implant and graft
CPT/HCPCS: 99284; 96374; 36415; 83690; 85025; 80053; 81001; J1885

== ENCOUNTER 2018-10-06 10:45 | Observation (INO) | payer BC, MEDICARE ==
[2018-10-06] MEDS ORDERED: NORMAL SALINE 1000 ML 1,000 ML IV ONE (11:02)
--- NOTE | 2018-10-06 11:08 | ER Document Report ---
ED Medical Screen (RME) - General Chief Complaint: Rectal Bleeding Stated Complaint: RECTAL BLEEDING Time Seen by Provider: 10/06/18 10:59 Primary Care Provider: MARU HAYWOOD MD [Primary Care Provider] - Follow up as needed Mode of Arrival: Ambulatory Information source: Patient Notes: 67-year-old man presented to ED for complaint of rectal bleeding. He states last night his stool was dark and soft this morning he had a lot more red blood in his stool. He states in either June or July she was admitted for bleeding from the intestines and had surgery on his large intestines. I have greeted and performed a rapid initial assessment of this patient. A comprehensive ED assessment and evaluation of the patient, analysis of test results and completion of medical decision making process will be conducted by an additional ED providers. Dictation of this chart was performed using voice recognition software; therefore, there may be some unintended grammatical errors. TRAVEL OUTSIDE OF THE [place] IN LAST 30 DAYS: No - Related Data Allergies/Adverse Reactions: No Known Allergies Allergy (Verified 10/06/18 10:45) Past Medical History - Social History Chew tobacco use (# tins/day): No Frequency of alcohol use: None Drug Abuse: None - Past Medical History Cardiac Medical History: Reports: Hx Coronary Artery Disease, Hx Heart Attack, Hx Hypercholesterolemia, Hx Hypertension Neurological Medical History: Reports: Hx Migraine. Denies: Hx Seizures Renal/ Medical History: Denies: Hx Peritoneal Dialysis GI Medical History: Reports: Hx Gastroesophageal Reflux Disease, Hx Hiatal Hernia, Hx Colonoscopy Musculoskeltal Medical History: Reports Hx Arthritis, Reports Hx Musculoskeletal Deformity, Reports Hx Musculoskeletal Trauma Psychiatric Medical History: Reports: Hx Bipolar Disorder, Hx Depression, Hx Obsessive Compulsive Disorder Traumatic Medical History: Reports: Hx Traumatic Brain Injury Past Surgical History: Reports: Hx Abdominal Surgery - hernia x2, Hx Cardiac Catheterization, Hx Coronary Stent, Hx Inguinal Hernia, Hx Orthopedic Surgery - Need, Hx Vascular Surgery - Took an artery out of left caodaism - Immunizations Immunizations up to date: Yes Hx Diphtheria, Pertussis, Tetanus Vaccination: Yes History of Influenza Vaccine for 02/2017 - 07/2017 Season: Unknown Physical Exam - Vital signs Vitals: Temp Pulse Resp BP Pulse Ox 98.5 F 67 18 134/97 H 97 10/06/18 10:46 10/06/18 10:46 10/06/18 10:46 10/06/18 10:46 10/06/18 10:46 Course - Vital Signs Vital signs: Temp Pulse Resp BP Pulse Ox 98.5 F 67 18 134/97 H 97 10/06/18 10:46 10/06/18 10:46 10/06/18 10:46 10/06/18 10:46 10/06/18 10:46 Doctor's Discharge - Discharge Referrals: MARU HAYWOOD MD [Primary Care Provider] - Follow up as needed
[2018-10-06 11:44] LABS: ABSOLUTE BASOPHILS # (AUTO) 0.1 10^3/uL (0.0-0.2); ABSOLUTE EOSINOPHILS # (AUTO) 0.2 10^3/uL (0.0-0.6); ABSOLUTE LYMPHOCYTES (AUTO) 0.6 10^3/uL (0.5-4.7); ABSOLUTE MONOCYTES (AUTO) 0.4 10^3/uL (0.1-1.4); ABSOLUTE NEUT (AUTO) 5.1 10^3/uL (1.7-8.2); BASOPHILS % (AUTO) 0.8 % (0-2); EOSINOPHILS % (AUTO) 3.2 % (0-6); HEMATOCRIT 41.3 % (37.9-51.0); HEMOGLOBIN 13.7 g/dL (13.5-17.0); MEAN CORPUSCULAR HEMOGLOBIN 29.1 pg (27.0-33.4); MEAN CORPUSCULAR HGB CONC 33.1 g/dL (32.0-36.0); MEAN CORPUSCULAR VOLUME 88 fl (80-97); PLATELET COUNT 226 10^3/uL (150-450); RED CELL DISTRIBUTION WIDTH 14.9 % (11.5-14.0); TOTAL CELLS COUNTED % (AUTO) 100 %; WHITE BLOOD COUNT 6.4 10^3/uL (4.0-10.5)
[2018-10-06 11:50] LABS: APPEARANCE,URINE CLEAR; BILIRUBIN,URINE NEGATIVE (NEGATIVE); COLOR,URINE YELLOW; GLUCOSE, URINE NEGATIVE (NEGATIVE); KETONES,URINE NEGATIVE (NEGATIVE); LEUKOCYTE ESTERASE,URINE TRACE (NEGATIVE); NITRITE,URINE NEGATIVE (NEGATIVE); PROTEIN,URINE NEGATIVE (NEGATIVE); URINE SPECIFIC GRAVITY 1.024; UROBILINOGEN,URINE NEGATIVE mg/dL (<2.0)
[2018-10-06 12:02] LABS: ALANINE AMINOTRANSFERASE 24 U/L (21-72); ALKALINE PHOSPHATASE 87 U/L (38-126); ANION GAP 11 (5-19); ASPARTATE AMINO TRANSFERASE 21 U/L (17-59); BILIRUBIN,DIRECT 0.2 mg/dL (0.0-0.4); BILIRUBIN,TOTAL 0.4 mg/dL (0.2-1.3); BLOOD UREA NITROGEN 15 mg/dL (7-20); CALCIUM 10.2 mg/dL (8.4-10.2); CARBON DIOXIDE 27 mmol/L (22-30); CHLORIDE 105 mmol/L (98-107); GLUCOSE 120 mg/dL (75-110); POTASSIUM 4.4 mmol/L (3.6-5.0); SODIUM 142.5 mmol/L (137-145); TOTAL PROTEIN 6.6 g/dL (6.3-8.2)
--- NOTE | 2018-10-06 15:04 | ER Document Report ---
ED GI Bleed / Rectal Pain - General Chief Complaint: Rectal Bleeding Stated Complaint: RECTAL BLEEDING Time Seen by Provider: 10/06/18 10:59 Primary Care Provider: MARU HAYWOOD MD [Primary Care Provider] - Follow up as needed Mode of Arrival: Ambulatory Notes: Patient is complaining of rectal bleeding since about 8 PM last night. He has had 3 mixture of solid and liquid stools since the onset and all of them had blood present. 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 Reviewing the chart from that visit shows that the patient had a colonoscopy done by Dr. Pollock and it showed ischemic bowel as well as some polyps that were removed. Patient was discharged from the hospital after that stay and has done well until last night. He has some mild mid, center abdominal pain. Denies any nausea or vomi ting. Has not had any fever. Patient says he takes a baby aspirin daily, but no other blood thinning medications. Patient was discovered to have a kidney mass recently and has been evaluated for that. He had an outpatient CT scan at another facility just 4 days ago. TRAVEL OUTSIDE OF THE [place] IN LAST 30 DAYS: No - Related Data Allergies/Adverse Reactions: No Known Allergies Allergy (Verified 10/06/18 10:45) Past Medical History - General Information source: Patient - Social History Smoking Status: Never Smoker Chew tobacco use (# tins/day): No Frequency of alcohol use: None Drug Abuse: None Family History: Hyperlipidemia, Malignancy - Pancreatic cancer in father. denies: Arthritis, CAD, COPD, CVA, DM, Hypertension, Thyroid Disfunction Patient has suicidal ideation: No Patient has homicidal ideation: No - Past Medical History Cardiac Medical History: Reports: Hx Coronary Artery Disease, Hx Heart Attack, Hx Hypercholesterolemia, Hx Hypertension Neurological Medical History: Reports: Hx Migraine GI Medical History: Reports: Hx Gastroesophageal Reflux Disease, Hx Hiatal Hernia, Hx Colonoscopy Musculoskeletal Medical History: Reports Hx Arthritis, Reports Hx Musculoskeletal Deformity, Reports Hx Musculoskeletal Trauma Psychiatric Medical History: Reports: Hx Bipolar Disorder, Hx Depression, Hx Obsessive Compulsive Disorder Traumatic Medical History: Reports: Hx Traumatic Brain Injury Past Surgical History: Reports: Hx Abdominal Surgery - hernia x2, Hx Cardiac Catheterization, Hx Coronary Stent, Hx Inguinal Hernia, Hx Orthopedic Surgery - Need, Hx Vascular Surgery - Took an artery out of left hindu - Immunizations Immunizations up to date: Yes Hx Diphtheria, Pertussis, Tetanus Vaccination: Yes Hx Pneumococcal Vaccination: 05/15/97 Review of Systems - Review of Systems Notes: REVIEW OF SYSTEMS: CONSTITUTIONAL : Denies fever. EENT: Denies eye, ear, nose or mouth or throat pain or other symptoms. CARDIOVASCULAR: Denies chest pain. RESPIRATORY: Denies cough, chest congestion, or shortness of breath. GASTROINTESTINAL: See HPI. GENITOURINARY: Denies difficulty or painful urinating, urinary frequency, blood in urine. MUSCULOSKELETAL: Denies back or neck pain. Denies joint pain or swelling. SKIN: Denies rash or skin lesions. NEUROLOGICAL: Denies LOC or altered mental status. Denies headache. Denies sensory loss or motor deficits. ALL OTHER SYSTEMS REVIEWED AND NEGATIVE. Physical Exam - Vital signs Vitals: Temp Pulse Resp BP Pulse Ox 98.5 F 67 18 134/97 H 97 10/06/18 10:46 10/06/18 10:46 10/06/18 10:46 10/06/18 10:46 10/06/18 10:46 Interpretation: Normal Notes: PHYSICAL EXAMINATION: GENERAL: Well-appearing, in no acute distress. Vital signs are all normal. HEAD: Atraumatic, normocephalic. EYES: Pupils equal round and reactive to light, extraocular movements intact. ENT: oropharynx clear without exudates. Moist mucous membranes. NECK: Normal range of motion, supple. LUNGS: Breath sounds clear and equal bilaterally. HEART: Regular rate and rhythm without murmurs. ABDOMEN: Soft, only minimal periumbilical tenderness. Definitely no guarding or rebound. No masses. No bruits heard. Rectal exam revealed pink mucous, no gross blood or clots, positive guaiac at bedside. BACK: No tenderness throughout entire back. EXTREMITIES: Normal range of motion without pain. NEUROLOGICAL: Normal speech, normal gait. Normal sensory, motor, and reflex exams. Awake, alert, and oriented x3. Cranial nerves normal. PSYCH: Normal mood, normal affect. SKIN: Warm, dry, no rashes. Course - Vital Signs Vital signs: Temp Pulse Resp BP Pulse Ox 98.5 F 67 18 134/97 H 97 10/06/18 10:46 10/06/18 10:46 10/06/18 10:46 10/06/18 10:46 10/06/18 10:46 - Laboratory Result Diagrams: 10/06/18 11:16 10/06/18 11:16 Laboratory results interpreted by me: 10/06/18 10/06/18 10/06/18 11:16 11:16 11:16 RDW 14.9 H Seg Neutrophils % 80.0 H Lymphocytes % 10.0 L Glucose 120 H Ur Leukocyte Esterase TRACE H Discharge - Discharge Clinical Impression: Rectal bleeding, Diverticulosis Condition: Stable Disposition: ADMITTED INPATIENT Admitting Provider: Kera (Hospitalist) Unit Admitted: Telemetry Referrals: MARU HAYWOOD MD [Primary Care Provider] - Follow up as needed
--- NOTE | 2018-10-06 16:32 | RADIOLOGY REPORT (SQ) ---
EXAM DESCRIPTION: CTA ABDOMEN/PELVIS W WO COMPLETED DATE/TIME: 10/06/2018 3:47 pm REASON FOR STUDY: Abdominal pain, rectal bleeding, Hx ischemic bowel COMPARISON: 11/27/2015. 11/23/2015. TECHNIQUE: CT scan of the abdominal aorta extending to the iliac bifurcation performed with and with out intravenous contrast using helical scanning technique with dynamic intravenous contrast injection . Delayed axial images were obtained. Images reviewed with lung, soft tissue, and bone windows. Rec onstructed coronal and sagittal MPR images reviewed. All images stored on PACS. Advanced 3D imaging as volume rendering, MIPS, SSD performed? yes All CT scanners at this facility use dose modulation, iterative reconstruction, and/or weight based d osing when appropriate to reduce radiation dose to as low as reasonably achievable (ALARA). [facility]: Dose Right [facility]: CareDose [facility]: Dose Right [facility]: Teradose 4D [facility]: Jybe CONTRAST TYPE AND DOSE: Isovue 370 100 mL. RENAL FUNCTION: Creatinine: 1.1 RADIATION DOSE: 2958.5 LIMITATIONS: None. FINDINGS: NON-CONTRASTED IMAGING: No significant renal or bladder calcifications. No other significa nt organ calcifications. POST-CONTRAST IMAGING: AORTA AND VESSELS: Atherosclerotic change of the abdominal aorta with tortuosity of the aorta noted. . No dissection. Renal arteries, SMA, celiac without stenosis. LUNG BASES: Dependent atelectasis in lung bases. Small simple hepatic cysts noted within right and left lobes of the liver. Normal size. No masses or dilated ducts. SPLEEN: No abnormality. Accessory splenic tissue adjacent to tail of pancreas. PANCREAS: No abnormality. GALLBLADDER: No abnormality. ADRENAL GLANDS: No abnormality. RIGHT KIDNEY AND URETER: Cortical bulge along the lower pole the right kidney anteriorly could repres ent normal lobulation present on prior studies. LEFT KIDNEY AND URETER: No abnormality. RETROPERITONEUM: No abnormality. BOWEL AND PERITONEAL CAVITY: Colonic diverticulosis. APPENDIX: No abnormality. PELVIS: Urinary bladder: Minimal thickening of bladder wall. Mildly prominent prostate. ABDOMINAL WALL: No masses. No hernias. BONY STRUCTURES: Multilevel lumbar spondylosis and degenerative disc disease. Prominent facet arthro katrina and hypertrophy at multiple levels. Foraminal narrowing noted prominently at L5-S1. Degenerat tano arthritis of the SI joints. 3-D IMAGING: Confirms the above findings. IMPRESSION: 1 . Multiple simple hepatic cyst. 2. lobulation lower pole right kidney essenti ally unchanged. Follow-up with ultrasound could be obtained. 3. Minimal thickening of the bladder wall. 4. Colonic diverticulosis. TECHNICAL DOCUMENTATION: JOB ID: [id number] Quality ID # [id number]: Final reports with documentation of one or more dose reduction techniques (e.g., Au tomated exposure control, adjustment of the mA and/or kV according to patient size, use of iterative reconstruction technique) 2010 [employer]- All Rights Reserved Reading location - IP/workstation name: [email or web address]
[2018-10-06] MEDS ORDERED: HYDRALAZINE HCL INJ/PF 20 MG/1 ML SDV IV PRN (17:31)
--- NOTE | 2018-10-06 17:31 | PDOC H&P ---
History of Present Illness Admission Date/PCP: 10/06/18 17:14 MARU HAYWOOD MD Patient complains of: rectal bleed History of Present Illness: LUZ TADEO is a 67 year old male with a past medical history of CAD, hypertension, bipolar disorder, history of TBI, and history of GI bleed in March 2018 who is presenting with bright red blood per rectum. Patient says that he has been apparently fine until last night when he started having bright red bloody stools. He said that this morning, the blood in the stools were more in the shade of burgundy. He says he had 6 episodes of bloody stools so far since yesterday. He denies any nausea or vomiting or hematemesis. He does complain of crampy epigastric, left upper quadrant pain. Denies chest pain or shortness of breath. Past Medical History Cardiac Medical History: Reports: Coronary Artery Disease, Myocardial Infarction, Hyperlipidema, Hypertension Neurological Medical History: Reports: Migraine Denies: Seizures GI Medical History: Reports: Gastroesophageal Reflux Disease, Hiatal Hernia Musculoskeltal Medical History: Reports: Arthritis Psychiatric Medical History: Reports: Bipolar Disorder, Depression Traumatic Medical History: Reports: Traumatic Brain Injury Past Surgical History Past Surgical History: Reports: Cardiac Catheterization, Coronary Stent, Orthopedic Surgery - Need, Vascular Surgery - Took an artery out of left protestant Social History Smoking Status: Never Smoker Frequency of Alcohol Use: None Hx Recreational Drug Use: No Drugs: None Hx Prescription Drug Abuse: No Family History Family History: Hyperlipidemia, Malignancy - Pancreatic cancer in father. denies: Arthritis, CAD, COPD, CVA, DM, Hypertension, Thyroid Disfunction Parental Family History Reviewed: Yes - No premature CAD Children Family History Reviewed: No Sibling(s) Family History Reviewed.: No Medication/Allergy Home Medications: Aspirin [Aspirin EC] 81 mg PO QHS 10/24/17 Butalb/Acetaminophen/Caffeine [Fioricet (50-325-40 mg) Tablet] 1 tab PO DAILYP PRN 10/24/17 Fluoxetine HCl [Prozac] 40 mg PO QHS 10/24/17 Gabapentin [Neurontin] 1,800 mg PO QHS 10/24/17 Lisinopril [Prinivil 5 mg Tablet] 5 mg PO QHS 10/24/17 Nitroglycerin [Nitrostat 0.4 mg (1/150 Gr) Tabs 25/Bottle] 1 tab SL Q5MP PRN 10/24/17 Quetiapine Fumarate [Seroquel 100 mg Tablet] 100 mg PO QHS 10/24/17 Ranitidine HCl [Zantac] 300 mg PO QHS 10/24/17 Simvastatin [Zocor 20 mg Tablet] 20 mg PO QHS 10/24/17 Tramadol HCl 50 mg PO Q6HP PRN #30 tablet 10/25/17 Levofloxacin [Levaquin 500 mg Tablet] 500 mg PO DAILY #5 tablet 03/29/18 Metronidazole [Flagyl 500 mg Tablet] 500 mg PO TID #15 tablet 03/29/18 Allergies/Adverse Reactions: No Known Allergies Allergy (Verified 10/06/18 10:45) Review of Systems All systems: reviewed and no additional remarkable complaints except as stated - As mentioned in HPI Physical Exam Vital Signs: Temp Pulse Resp BP Pulse Ox 98.5 F 67 18 134/97 H 97 10/06/18 10:46 10/06/18 10:46 10/06/18 10:46 10/06/18 10:46 10/06/18 10:46 Intake & Output 10/05/18 10/06/18 10/07/18 06:59 06:59 06:59 Intake Total 1000 Balance 1000 Weight 180 lb 5.41 oz General appearance: PRESENT: no acute distress, well-developed, well-nourished Head exam: PRESENT: atraumatic, normocephalic Eye exam: PRESENT: conjunctiva pink, EOMI, PERRLA. ABSENT: scleral icterus Ear exam: PRESENT: normal external ear exam Mouth exam: PRESENT: moist, tongue midline Neck exam: ABSENT: carotid bruit, JVD, lymphadenopathy, thyromegaly Respiratory exam: PRESENT: clear to auscultation lisa. ABSENT: rales, rhonchi, wheezes Cardiovascular exam: PRESENT: RRR. ABSENT: diastolic murmur, rubs, systolic murmur Pulses: PRESENT: normal dorsalis pedis pul GI/Abdominal exam: PRESENT: normal bowel sounds, soft, tenderness - Very minimal direct tenderness in the left upper quadrant area. ABSENT: distended, guarding, mass, organolmegaly, rebound Rectal exam: PRESENT: deferred Neurological exam: PRESENT: alert, awake, oriented to person, oriented to place, oriented to time, oriented to situation, CN II-XII grossly intact. ABSENT: motor sensory deficit Results Laboratory Results: 10/06/18 11:16 10/06/18 11:16 10/06/18 10/06/18 10/06/18 11:16 11:16 11:16 WBC 6.4 RBC 4.70 Hgb 13.7 Hct 41.3 MCV 88 MCH 29.1 MCHC 33.1 RDW 14.9 H Plt Count 226 Seg Neutrophils % 80.0 H Lymphocytes % 10.0 L Monocytes % 6.0 Eosinophils % 3.2 Basophils % 0.8 Absolute Neutrophils 5.1 Absolute Lymphocytes 0.6 Absolute Monocytes 0.4 Absolute Eosinophils 0.2 Absolute Basophils 0.1 Sodium 142.5 Potassium 4.4 Chloride 105 Carbon Dioxide 27 Anion Gap 11 BUN 15 Creatinine 1.14 Est GFR ( Amer) > 60 Est GFR (Non-Af Amer) > 60 Glucose 120 H Calcium 10.2 Total Bilirubin 0.4 AST 21 ALT 24 Alkaline Phosphatase 87 Total Protein 6.6 Albumin 4.0 Urine Color Urine Appearance Urine pH Ur Specific [place] Urine Protein Urine Glucose (UA) Urine Ketones Urine Blood Urine Nitrite Ur Leukocyte Esterase Urine WBC (Auto) Urine RBC (Auto) Stool Occult Blood Blood Type B POSITIVE Antibody Screen NEGATIVE 10/06/18 10/06/18 11:16 14:56 WBC RBC Hgb Hct MCV MCH MCHC RDW Plt Count Seg Neutrophils % Lymphocytes % Monocytes % Eosinophils % Basophils % Absolute Neutrophils Absolute Lymphocytes Absolute Monocytes Absolute Eosinophils Absolute Basophils Sodium Potassium Chloride Carbon Dioxide Anion Gap BUN Creatinine Est GFR ( Amer) Est GFR (Non-Af Amer) Glucose Calcium Total Bilirubin AST ALT Alkaline Phosphatase Total Protein Albumin Urine Color YELLOW Urine Appearance CLEAR Urine pH 5.0 Ur Specific [place] 1.024 Urine Protein NEGATIVE Urine Glucose (UA) NEGATIVE Urine Ketones NEGATIVE Urine Blood NEGATIVE Urine Nitrite NEGATIVE Ur Leukocyte Esterase TRACE H Urine WBC (Auto) 3 Urine RBC (Auto) 2 Stool Occult Blood POSITIVE Blood Type Antibody Screen Impressions: Abdomen/Pelvis CTA 10/06/18 14:41 IMPRESSION: 1 . Multiple simple hepatic cyst. 2. lobulation lower pole right kidney essentially unchanged. Follow-up with ultrasound could be obtained. 3. Minimal thickening of the bladder wall. 4. Colonic diverticulosis. Assessment and Plan - Diagnosis (1) Rectal bleeding Is this a current diagnosis for this admission?: Yes Plan: Patient had a colonoscopy in March 2018 which showed possible ischemic colitis and scattered diverticulosis. Surgery was consulted in the ER and did recommend CTA of the abdomen and pelvis to assess for ischemic colitis. CTA was only remarkable for colonic diverticulosis. Rectal bleeding is likely diverticular in nature. Hemoglobin is normal and stable from previous baseline. Patient's blood pressures are on the hypertensive side. Will cycle H&H. Will start patient on IV fluids. Sent for type and screen. Surgery will continue to follow. (2) CAD (coronary artery disease), [place] coronary artery Is this a current diagnosis for this admission?: Yes Plan: Hold off on aspirin for now due to GI bleed. (3) Essential hypertension Is this a current diagnosis for this admission?: Yes Plan: Will allow permissive hypertension for now. Will give hydralazine as needed with parameters. - Time Time Spent with patient: 25-34 minutes
[2018-10-06] MEDS ORDERED: DEXTROSE 50%-WATER 25 GM/50 ML DISP.SYRIN IV PRN ×2 (17:33)
[2018-10-06] MEDS ORDERED: GLUCAGON,HUMAN RECOMB 1 MG INJ SUBCUT PRN (17:33)
[2018-10-06] MEDS ORDERED: DEXTROSE 40% GEL 15 GM TUBE PO PRN ×2 (17:33)
[2018-10-06 18:24] LABS: ABSOLUTE BASOPHILS # (AUTO) 0.1 10^3/uL (0.0-0.2); ABSOLUTE EOSINOPHILS # (AUTO) 0.2 10^3/uL (0.0-0.6); ABSOLUTE MONOCYTES (AUTO) 0.5 10^3/uL (0.1-1.4); ABSOLUTE NEUT (AUTO) 6.6 10^3/uL (1.7-8.2); BASOPHILS % (AUTO) 0.7 % (0-2); EOSINOPHILS % (AUTO) 2.4 % (0-6); HEMATOCRIT 41.6 % (37.9-51.0); HEMOGLOBIN 13.9 g/dL (13.5-17.0); LYMPHOCYTES % (AUTO) 11.6 % (13-45); MEAN CORPUSCULAR HEMOGLOBIN 29.3 pg (27.0-33.4); MEAN CORPUSCULAR HGB CONC 33.4 g/dL (32.0-36.0); MEAN CORPUSCULAR VOLUME 88 fl (80-97); MONOCYTES % (AUTO) 5.5 % (3-13); PLATELET COUNT 217 10^3/uL (150-450); RED BLOOD COUNT 4.74 10^6/uL (4.35-5.55); RED CELL DISTRIBUTION WIDTH 14.9 % (11.5-14.0); SEGMENTED NEUTROPHILS % (AUTO) 79.8 % (42-78); TOTAL CELLS COUNTED % (AUTO) 100 %; WHITE BLOOD COUNT 8.3 10^3/uL (4.0-10.5)
[2018-10-06] MEDS: NORMAL SALINE 1000 ML 1,000 ML IV PRN (20:04)
[2018-10-06] MEDS: MORPHINE SULFATE 10 MG/ML INJ IV PRN (20:19)
--- NOTE | 2018-10-06 20:46 | PDOC CONSULTATION ---
Consultation Consult Date: 10/06/18 Provider Consulted: JUWAN BOURNE Consult reason:: lower gi bleed History of Present Illness Admission Date/PCP: 10/06/18 17:14 MARU HAYWOOD MD Patient complains of: abdominal pains History of Present Illness: LUZ TADEO is a 67 year old male who suddenly c/o epigastric pains last night associated with bloody stools. Had same history in and had colonoscopy with Dr Pollock and found ischemic colitis. This time had CTA of mesenteric vessels that was normal. History of Bipolar,TBI when he fell 2 stories to concrete age 57 and has been on disability since. C/O chronic back pains on Tramadol since. Being followed at the [place] [facility] for 1 1/2 years for back pains. Also takes Hydrocodone occasionally. Takes Baby ASA BID. Past Medical History Cardiac Medical History: Reports: Coronary Artery Disease, Myocardial Infarction, Hyperlipidema, Hypertension Neurological Medical History: Reports: Migraine Denies: Seizures GI Medical History: Reports: Gastroesophageal Reflux Disease, Hiatal Hernia Musculoskeltal Medical History: Reports: Arthritis Psychiatric Medical History: Reports: Bipolar Disorder, Depression Traumatic Medical History: Reports: Traumatic Brain Injury Past Surgical History Past Surgical History: Reports: Cardiac Catheterization, Coronary Stent, Orthopedic Surgery - Need, Vascular Surgery - Took an artery out of left tenri[place] Social History Smoking Status: Never Smoker Frequency of Alcohol Use: None Hx Recreational Drug Use: No Drugs: None Hx Prescription Drug Abuse: No Family History Family History: Hyperlipidemia, Malignancy - Pancreatic cancer in father. denies: Arthritis, CAD, COPD, CVA, DM, Hypertension, Thyroid Disfunction Parental Family History Reviewed: Yes Children Family History Reviewed: No Sibling(s) Family History Reviewed.: No Medication/Allergy Home Medications: Aspirin [Aspirin EC] 81 mg PO QHS 10/24/17 Butalb/Acetaminophen/Caffeine [Fioricet (50-325-40 mg) Tablet] 1 tab PO DAILYP PRN 10/24/17 Fluoxetine HCl [Prozac] 40 mg PO QHS 10/24/17 Gabapentin [Neurontin] 1,800 mg PO QHS 10/24/17 Lisinopril [Prinivil 5 mg Tablet] 5 mg PO QHS 10/24/17 Nitroglycerin [Nitrostat 0.4 mg (1/150 Gr) Tabs 25/Bottle] 1 tab SL Q5MP PRN 10/24/17 Quetiapine Fumarate [Seroquel 100 mg Tablet] 100 mg PO QHS 10/24/17 Ranitidine HCl [Zantac] 300 mg PO QHS 10/24/17 Simvastatin [Zocor 20 mg Tablet] 20 mg PO QHS 10/24/17 Tramadol HCl 50 mg PO Q6HP PRN #30 tablet 10/25/17 Levofloxacin [Levaquin 500 mg Tablet] 500 mg PO DAILY #5 tablet 03/29/18 Metronidazole [Flagyl 500 mg Tablet] 500 mg PO TID #15 tablet 03/29/18 Allergies/Adverse Reactions: No Known Allergies Allergy (Verified 10/06/18 10:45) Review of Systems Constitutional: PRESENT: as per HPI, other - no fever/chills Cardiovascular: PRESENT: other - no chest pains/cough Gastrointestinal: PRESENT: abdominal pain Genitourinary: PRESENT: other - no dysuria Musculoskeletal: PRESENT: back pain Psychiatric: PRESENT: depression Physical Exam Vital Signs: Temp Pulse Resp BP Pulse Ox 98.5 F 67 18 134/97 H 97 10/06/18 10:46 10/06/18 10:46 10/06/18 10:46 10/06/18 10:46 10/06/18 10:46 Intake & Output 10/05/18 10/06/18 10/07/18 06:59 06:59 06:59 Intake Total 1000 Balance 1000 Weight 81.8 kg General appearance: PRESENT: no acute distress Head exam: PRESENT: atraumatic Eye exam: PRESENT: conjunctiva pink Mouth exam: PRESENT: moist Neck exam: PRESENT: full ROM Respiratory exam: PRESENT: clear to auscultation lisa Cardiovascular exam: PRESENT: RRR Pulses: PRESENT: normal radial pulses Vascular exam: PRESENT: normal capillary refill GI/Abdominal exam: PRESENT: soft, tenderness - mild tenderness upper abdomen Rectal exam: PRESENT: heme (+) stool Extremities exam: PRESENT: full ROM Musculoskeletal exam: PRESENT: ambulatory Neurological exam: PRESENT: alert, oriented to person, oriented to place, oriented to time, oriented to situation Psychiatric exam: PRESENT: anxious Skin exam: PRESENT: normal color, warm Results Laboratory Results: 10/06/18 18:00 10/06/18 11:16 10/06/18 10/06/18 10/06/18 11:16 11:16 11:16 WBC 6.4 RBC 4.70 Hgb 13.7 Hct 41.3 MCV 88 MCH 29.1 MCHC 33.1 RDW 14.9 H Plt Count 226 Seg Neutrophils % 80.0 H Lymphocytes % 10.0 L Monocytes % 6.0 Eosinophils % 3.2 Basophils % 0.8 Absolute Neutrophils 5.1 Absolute Lymphocytes 0.6 Absolute Monocytes 0.4 Absolute Eosinophils 0.2 Absolute Basophils 0.1 Sodium 142.5 Potassium 4.4 Chloride 105 Carbon Dioxide 27 Anion Gap 11 BUN 15 Creatinine 1.14 Est GFR ( Amer) > 60 Est GFR (Non-Af Amer) > 60 Glucose 120 H Calcium 10.2 Total Bilirubin 0.4 AST 21 ALT 24 Alkaline Phosphatase 87 Total Protein 6.6 Albumin 4.0 Urine Color Urine Appearance Urine pH Ur Specific [place] Urine Protein Urine Glucose (UA) Urine Ketones Urine Blood Urine Nitrite Ur Leukocyte Esterase Urine WBC (Auto) Urine RBC (Auto) Stool Occult Blood Blood Type B POSITIVE Antibody Screen NEGATIVE 10/06/18 10/06/18 10/06/18 11:16 14:56 18:00 WBC 8.3 RBC 4.74 Hgb 13.9 Hct 41.6 MCV 88 MCH 29.3 MCHC 33.4 RDW 14.9 H Plt Count 217 Seg Neutrophils % 79.8 H Lymphocytes % 11.6 L Monocytes % 5.5 Eosinophils % 2.4 Basophils % 0.7 Absolute Neutrophils 6.6 Absolute Lymphocytes 1.0 Absolute Monocytes 0.5 Absolute Eosinophils 0.2 Absolute Basophils 0.1 Sodium Potassium Chloride Carbon Dioxide Anion Gap BUN Creatinine Est GFR ( Amer) Est GFR (Non-Af Amer) Glucose Calcium Total Bilirubin AST ALT Alkaline Phosphatase Total Protein Albumin Urine Color YELLOW Urine Appearance CLEAR Urine pH 5.0 Ur Specific [place] 1.024 Urine Protein NEGATIVE Urine Glucose (UA) NEGATIVE Urine Ketones NEGATIVE Urine Blood NEGATIVE Urine Nitrite NEGATIVE Ur Leukocyte Esterase TRACE H Urine WBC (Auto) 3 Urine RBC (Auto) 2 Stool Occult Blood POSITIVE Blood Type Antibody Screen Impressions: Abdomen/Pelvis CTA 10/06/18 14:41 IMPRESSION: 1 . Multiple simple hepatic cyst. 2. lobulation lower pole right kidney essentially unchanged. Follow-up with ultrasound could be obtained. 3. Minimal thickening of the bladder wall. 4. Colonic divert iculosis. Assessment & Plan - Diagnosis (1) Diverticulosis Is this a current diagnosis for this admission?: Yes (2) CAD (coronary artery disease), [place] coronary artery Is this a current diagnosis for this admission?: Yes (3) Chronic pain Is this a current diagnosis for this admission?: Yes (4) Chronic, continuous use of opioids Is this a current diagnosis for this admission?: Yes (5) Lower GI bleed Is this a current diagnosis for this admission?: Yes (6) Psychiatric disorder Is this a current diagnosis for this admission?: Yes - Time Time Spent: 30 to 50 Minutes - Inpatient Certification Medical Necessity: Need For IV Fluids, Need for Surgery, Risk of Complication if Not Cared For in Hospital - Plan Summary Plan Summary: Monitor H/H Clear liquids Bowel prep tomorrow Possible colonoscopy by Dr Pollock Monday
[2018-10-06] MEDS ORDERED: TRAMADOL HCL 50 MG TABLET PO PRN (20:47)
[2018-10-06] MEDS ORDERED: BUTALB/ACETAMINOPHEN/CAFFEINE 1 TAB EACH PO PRN (20:47)
[2018-10-06] MEDS: FLUOXETINE HCL 20 MG CAPSULE PO SCH (21:49)
[2018-10-06] MEDS: PANTOPRAZOLE SODIUM 40 MG VIAL IV SCH (21:50)
[2018-10-06] MEDS: LISINOPRIL 5 MG TABLET PO SCH (21:50)
[2018-10-06] MEDS: QUETIAPINE FUMARATE 100 MG TABLET PO SCH (21:50)
[2018-10-06] MEDS: SIMVASTATIN 10 MG TABLET PO SCH (21:50)
[2018-10-06] MEDS ORDERED: ASPIRIN 81 MG TABLET, ENT COATED PO SCH (22:00)
[2018-10-06] MEDS ORDERED: (PENDING PHARMACY ID) (Gabapentin [Neurontin] 1,800 MG) PO SCH (22:00)
[2018-10-07] MEDS: MORPHINE SULFATE 10 MG/ML INJ IV PRN ×3 (01:14→23:17)
[2018-10-07 02:10] LABS: ABSOLUTE EOSINOPHILS # (AUTO) 0.2 10^3/uL (0.0-0.6); ABSOLUTE LYMPHOCYTES (AUTO) 0.9 10^3/uL (0.5-4.7); ABSOLUTE MONOCYTES (AUTO) 0.4 10^3/uL (0.1-1.4); ABSOLUTE NEUT (AUTO) 4.4 10^3/uL (1.7-8.2); BASOPHILS % (AUTO) 0.7 % (0-2); EOSINOPHILS % (AUTO) 2.8 % (0-6); HEMATOCRIT 37.6 % (37.9-51.0); HEMOGLOBIN 12.6 g/dL (13.5-17.0); LYMPHOCYTES % (AUTO) 15.1 % (13-45); MEAN CORPUSCULAR HEMOGLOBIN 29.1 pg (27.0-33.4); MEAN CORPUSCULAR HGB CONC 33.5 g/dL (32.0-36.0); MEAN CORPUSCULAR VOLUME 87 fl (80-97); MONOCYTES % (AUTO) 6.5 % (3-13); PLATELET COUNT 189 10^3/uL (150-450); RED BLOOD COUNT 4.33 10^6/uL (4.35-5.55); RED CELL DISTRIBUTION WIDTH 14.5 % (11.5-14.0); SEGMENTED NEUTROPHILS % (AUTO) 74.9 % (42-78); TOTAL CELLS COUNTED % (AUTO) 100 %; WHITE BLOOD COUNT 5.9 10^3/uL (4.0-10.5)
[2018-10-07] MEDS: NORMAL SALINE 1000 ML 1,000 ML IV PRN ×2 (07:08→16:31)
[2018-10-07] MEDS: PANTOPRAZOLE SODIUM 40 MG VIAL IV SCH ×2 (09:21→22:00)
[2018-10-07 10:52] LABS: ABSOLUTE EOSINOPHILS # (AUTO) 0.1 10^3/uL (0.0-0.6); ABSOLUTE LYMPHOCYTES (AUTO) 0.8 10^3/uL (0.5-4.7); ABSOLUTE MONOCYTES (AUTO) 0.4 10^3/uL (0.1-1.4); ABSOLUTE NEUT (AUTO) 5.4 10^3/uL (1.7-8.2); BASOPHILS % (AUTO) 0.5 % (0-2); EOSINOPHILS % (AUTO) 1.5 % (0-6); HEMATOCRIT 38.3 % (37.9-51.0); HEMOGLOBIN 12.8 g/dL (13.5-17.0); LYMPHOCYTES % (AUTO) 11.4 % (13-45); MEAN CORPUSCULAR HEMOGLOBIN 29.5 pg (27.0-33.4); MEAN CORPUSCULAR HGB CONC 33.5 g/dL (32.0-36.0); MEAN CORPUSCULAR VOLUME 88 fl (80-97); MONOCYTES % (AUTO) 5.7 % (3-13); PLATELET COUNT 188 10^3/uL (150-450); RED BLOOD COUNT 4.34 10^6/uL (4.35-5.55); RED CELL DISTRIBUTION WIDTH 14.9 % (11.5-14.0); SEGMENTED NEUTROPHILS % (AUTO) 80.9 % (42-78); TOTAL CELLS COUNTED % (AUTO) 100 %; WHITE BLOOD COUNT 6.7 10^3/uL (4.0-10.5)
--- NOTE | 2018-10-07 14:42 | PDOC PROGRESS REPORT ---
Subjective Progress Note for:: 10/07/18 Subjective:: LUZ TADEO is a 67 year old male with a past medical history of CAD, hypertension, bipolar disorder, history of TBI, and history of GI bleed in March 2018 who is presenting with bright red blood per rectum. He was admitted for a possible diverticular bleed. He had 2 BM overnight which he said were lightly red blood tinged but not as bloody as the yesterday. No nausea or vomiting. Prep ordered by surgery for colonoscopy tomorrow. Reason For Visit: RECTAL BLEEDING,DIVERTICULOSIS Physical Exam Vital Signs: Temp Pulse Resp BP Pulse Ox 98.4 F 51 L 14 121/70 100 10/07/18 12:21 10/07/18 12:21 10/07/18 12:21 10/07/18 12:21 10/07/18 12:21 Intake & Output 10/06/18 10/07/18 10/08/18 06:59 06:59 06:59 Intake Total 2118 670 Output Total 150 400 Balance 1968 270 Weight 181 lb 10.574 oz General appearance: PRESENT: no acute distress, well-developed, well-nourished Head exam: PRESENT: atraumatic, normocephalic Eye exam: PRESENT: conjunctiva pink, EOMI, PERRLA. ABSENT: scleral icterus Ear exam: PRESENT: normal external ear exam Mouth exam: PRESENT: moist, tongue midline Neck exam: ABSENT: carotid bruit, JVD, lymphadenopathy, thyromegaly Respiratory exam: PRESENT: clear to auscultation lisa. ABSENT: rales, rhonchi, wheezes Cardiovascular exam: PRESENT: RRR. ABSENT: diastolic murmur, rubs, systolic murmur Pulses: PRESENT: normal dorsalis pedis pul GI/Abdominal exam: PRESENT: normal bowel sounds, soft. ABSENT: distended, guarding, mass, organolmegaly, rebound, tenderness Rectal exam: PRESENT: deferred Extremities exam: PRESENT: full ROM. ABSENT: calf tenderness, clubbing, pedal edema Neurological exam: PRESENT: alert, awake, oriented to person, oriented to place, oriented to time, oriented to situation, CN II-XII grossly intact. ABSENT: motor sensory deficit Results Laboratory Results: 10/07/18 10:24 10/06/18 11:16 10/06/18 10/06/18 10/07/18 14:56 18:00 02:01 WBC 8.3 5.9 RBC 4.74 4.33 L Hgb 13.9 12.6 L Hct 41.6 37.6 L MCV 88 87 MCH 29.3 29.1 MCHC 33.4 33.5 RDW 14.9 H 14.5 H Plt Count 217 189 Seg Neutrophils % 79.8 H 74.9 Lymphocytes % 11.6 L 15.1 Monocytes % 5.5 6.5 Eosinophils % 2.4 2.8 Basophils % 0.7 0.7 Absolute Neutrophils 6.6 4.4 Absolute Lymphocytes 1.0 0.9 Absolute Monocytes 0.5 0.4 Absolute Eosinophils 0.2 0.2 Absolute Basophils 0.1 0.0 Stool Occult Blood POSITIVE 10/07/18 10:24 WBC 6.7 RBC 4.34 L Hgb 12.8 L Hct 38.3 MCV 88 MCH 29.5 MCHC 33.5 RDW 14.9 H Plt Count 188 Seg Neutrophils % 80.9 H Lymphocytes % 11.4 L Monocytes % 5.7 Eosinophils % 1.5 Basophils % 0.5 Absolute Neutrophils 5.4 Absolute Lymphocytes 0.8 Absolute Monocytes 0.4 Absolute Eosinophils 0.1 Absolute Basophils 0.0 Stool Occult Blood Impressions: Abdomen/Pelvis CTA 10/06/18 14:41 IMPRESSION: 1 . Multiple simple hepatic cyst. 2. lobulation lower pole right kidney essentially unchanged. Follow-up with ultrasound could be obtained. 3. Minimal thickening of the bladder wall. 4. Colonic diverticulosis. Assessment and Plan - Diagnosis (1) Rectal bleeding Is this a current diagnosis for this admission?: Yes Plan: Patient had a colonoscopy in March 2018 which showed possible ischemic coli tis and scattered diverticulosis. Surgery was consulted in the ER and did recommend CTA of the abdomen and pelvis to assess for ischemic colitis. CTA was only remarkable for colonic diverticulosis. Rectal bleeding is likely diverticular in nature. Hemoglobin is normal and stable from previous baseline. Patient's blood pressures are on the hypertensive side. Will cycle H&H. Will start patient on IV fluids. Sent for type and screen. Surgery will continue to follow. 10/07: He had 2 BM overnight which he said were lightly red blood tinged but not as bloody as the yesterday. Hb slightly trended down. Blood pressures remain stable. Prep ordered by surgery for colonoscopy tomorrow. (2) CAD (coronary artery disease), [place] coronary artery Is this a current diagnosis for this admission?: Yes Plan: Hold off on aspirin for now due to GI bleed. (3) Essential hypertension Is this a current diagnosis for this admission?: Yes Plan: Controlled. - Time Time Spent with patient: 15-24 minutes
[2018-10-07] MEDS ORDERED: PEG 3350/NA SULF,BICARB,CL/KCL 4000 ML PO ONE (15:00)
[2018-10-07] MEDS ORDERED: ONDANSETRON HCL INJ/PF 4 MG/2 ML SDV IV PRN (21:31)
[2018-10-07] MEDS: QUETIAPINE FUMARATE 100 MG TABLET PO SCH (23:18)
[2018-10-07] MEDS: FLUOXETINE HCL 20 MG CAPSULE PO SCH (23:18)
[2018-10-07] MEDS: LISINOPRIL 5 MG TABLET PO SCH (23:18)
[2018-10-07] MEDS: SIMVASTATIN 10 MG TABLET PO SCH (23:18)
[2018-10-08] MEDS: NORMAL SALINE 1000 ML 1,000 ML IV PRN (03:37)
[2018-10-08 05:48] LABS: ABSOLUTE EOSINOPHILS # (AUTO) 0.2 10^3/uL (0.0-0.6); ABSOLUTE LYMPHOCYTES (AUTO) 1.1 10^3/uL (0.5-4.7); ABSOLUTE MONOCYTES (AUTO) 0.3 10^3/uL (0.1-1.4); ABSOLUTE NEUT (AUTO) 4.2 10^3/uL (1.7-8.2); BASOPHILS % (AUTO) 0.6 % (0-2); EOSINOPHILS % (AUTO) 2.9 % (0-6); HEMATOCRIT 34.6 % (37.9-51.0); HEMOGLOBIN 11.7 g/dL (13.5-17.0); LYMPHOCYTES % (AUTO) 19.1 % (13-45); MEAN CORPUSCULAR HEMOGLOBIN 29.2 pg (27.0-33.4); MEAN CORPUSCULAR HGB CONC 33.7 g/dL (32.0-36.0); MEAN CORPUSCULAR VOLUME 87 fl (80-97); MONOCYTES % (AUTO) 5.8 % (3-13); PLATELET COUNT 168 10^3/uL (150-450); RED BLOOD COUNT 3.99 10^6/uL (4.35-5.55); RED CELL DISTRIBUTION WIDTH 14.6 % (11.5-14.0); SEGMENTED NEUTROPHILS % (AUTO) 71.6 % (42-78); TOTAL CELLS COUNTED % (AUTO) 100 %; WHITE BLOOD COUNT 5.8 10^3/uL (4.0-10.5)
[2018-10-08 05:51] LABS: INTERNATIONAL RATION (INR) 1.03
[2018-10-08] MEDS: PANTOPRAZOLE SODIUM 40 MG VIAL IV SCH (09:21)
[2018-10-08] MEDS ORDERED: DIPHENHYDRAMINE HCL 50 MG/ML VIAL ONE (09:44)
[2018-10-08] MEDS ORDERED: ONDANSETRON HCL INJ/PF 4 MG/2 ML SDV ONE (09:44)
[2018-10-08] MEDS ORDERED: FENTANYL CITRATE INJ/PF 100 MCG/2 ML AMPUL ONE (09:44)
[2018-10-08] MEDS ORDERED: GLUCAGON,HUMAN RECOMB 1 MG INJ ONE (09:45)
[2018-10-08] MEDS ORDERED: FLUMAZENIL INJ 0.5 MG/5 ML VIAL ONE (09:45)
[2018-10-08] MEDS ORDERED: EPINEPHRINE INJ 1 MG/10 ML DISP.SYRIN ONE (09:45)
[2018-10-08] MEDS ORDERED: NALOXONE HCL INJ/PF 0.4 MG/1 ML SDV ONE (09:45)
[2018-10-08] MEDS: MIDAZOLAM 2 MG/2 ML INJ ONE ×3 (10:25→10:33)
--- NOTE | 2018-10-08 11:12 | Operative Report ---
Operative Report DATE OF SURGERY: 10/08/18 PREOPERATIVE DIAGNOSIS: Acute recurrent gastrointestinal bleeding from the rect um; history of diverticulosis and ischemic colitis POSTOPERATIVE DIAGNOSIS: Colitis of the distal transverse colon, and left colon; scattered sigmoid diverticulosis OPERATION: 1. Total colonoscopy to cecum. 2. Cold forceps biopsy of transverse colon SURGEON: TWIN [place] ANESTHESIA: Moderate Sedation TISSUE REMOVED OR ALTERED: Biopsy mucosa COMPLICATIONS: None ESTIMATED BLOOD LOSS: Scant INTRAOPERATIVE FINDINGS: See below PROCEDURE: Obtaining informed consent the patient was taken from the preoperative holding area to the main endoscopy suite where monitoring devices were attached to the patient. Plan and surgical timeout were conducted The patient was placed in the left lateral decubitus position with knees to chest. A perianal examination was performed. There was no visible or palpable anorectal pathology. Sphincter tone was felt to be normal. The flexible adult colonoscope was advanced through the anal rectal canal, all the way to the cecum. There was visualization of the cecum, however due to the inadequate bowel prep, complete mucosal evaluation was not possible. There was a significant amount of residual green slurry stool in the right colon. . The colonoscope was withdrawn slowly and methodically checked and the mucosa carefully. There was no evidence of tumor, stricture, bleeding or polyp. There were scattered diverticulosis of the sigmoid colon but no stenosis. There was no active bleeding, however the colon was significant for acutely inflamed and areas of chronic inflammation of the distal transverse colon, splenic flexure and spotty areas of the left colon. There was no joseph ulceration or tumor. Multiple photos were taken. This was a non-contiguous process. A cold forceps biopsy was obtained of the acutely inflamed transverse colon. Bleeding minimal multiple photos were taken. The scope was slowly withdrawn through the anal rectal canal. Complete visualization of the rectum was achieved with photodocumentation. The scope was withdrawn to the patient's anus. The patient tolerated the procedure well and was taken to the recovery area in stable condition. Impression: Acute, recurrent transverse and proximal left colon colitis, status post total colonoscopy with biopsy. Recommendations: 1. Supportive therapy 2. Await final pathologic diagnosis of the biopsy specimen. Recommend patient follow-up with gastroenterology. 3. Discussed the above with primary care team; surgery will sign off; reconsult if indicated.
[2018-10-08 12:20] LABS: HEMATOCRIT 35.9 % (37.9-51.0); MEAN CORPUSCULAR HEMOGLOBIN 29.1 pg (27.0-33.4); MEAN CORPUSCULAR HGB CONC 33.4 g/dL (32.0-36.0); MEAN CORPUSCULAR VOLUME 87 fl (80-97); PLATELET COUNT 185 10^3/uL (150-450); RED BLOOD COUNT 4.12 10^6/uL (4.35-5.55); RED CELL DISTRIBUTION WIDTH 14.6 % (11.5-14.0)
[2018-10-08 15:10] VITALS: BP 139/85
--- NOTE | 2018-10-08 17:36 | PDOC DISCHARGE SUMMARY ---
General - Admit/Disc Date/PCP Admission Date/Primary Care Provider: 10/06/18 17:14 MARU HAYWOOD MD Discharge Date: 10/08/18 - Discharge Diagnosis (1) Rectal bleeding Is this a current diagnosis for this admission?: Yes (2) CAD (coronary artery disease), nome coronary artery Is this a current diagnosis for this admission?: Yes (3) Essential hypertension Is this a current diagnosis for this admission?: Yes - Additional Information Discharge Diet: As Tolerated Discharge Activity: Activity As Tolerated Home Medications: Aspirin [Aspirin EC] 81 mg PO QHS 10/24/17 Butalb/Acetaminophen/Caffeine [Fioricet (50-325-40 mg) Tablet] 1 tab PO DAILYP PRN 10/24/17 Fluoxetine HCl [Prozac] 40 mg PO QHS 10/24/17 Gabapentin [Neurontin] 1,800 mg PO QHS 10/24/17 Lisinopril [Prinivil 5 mg Tablet] 5 mg PO QHS 10/24/17 Quetiapine Fumarate [Seroquel 100 mg Tablet] 150 mg PO QHS 10/24/17 Simvastatin [Zocor 20 mg Tablet] 20 mg PO QHS 10/24/17 Ranitidine HCl [Zantac] 300 mg PO DAILY 10/07/18 Tramadol HCl [Ultram 50 mg Tablet] 100 mg PO BID 10/07/18 History of Present Illness History of Present Illness: LUZ TADEO is a 67 year old male with a past medical history of CAD, hypertension, bipolar disorder, history of TBI, and history of GI bleed in March 2018 who is presenting with bright red blood per rectum. Patient says that he has been apparently fine until last night when he started having bright red bloody stools. He said that this morning, the blood in the stools were more in the shade of burgundy. He says he had 6 episodes of bloody stools so far since yesterday. He denies any nausea or vomiting or hematemesis. He does complain of crampy epigastric, left upper quadrant pain. Denies chest pain or shortness of breath. Hospital Course Hospital Course: LUZ TADEO is a 67 year old male with a past medical history of CAD, hypertension, bipolar disorder, history of TBI, diverticulosis and history of GI bleed in March 2018 who is presenting with bright red blood per rectum. He was admitted for a possible diverticular bleed. Surgery was consulted in the ER and did recommend CTA of the abdomen and pelvis to assess for ischemic colitis. CTA was only remarkable for colonic diverticulosis. His hemoglobin was cycled. Hemoglobin did slightly trended down but remained stable. His stools did clear up and on day of discharge and just prior to colonoscopy he did not have recurrence of bloody stools. He underwent colonoscopy by surgery which showed colitis but no active bleeding. Biopsies were obtained and are pending. His stools returned to baseline. Patient does confirm that he has an appointment with a golf caddy next week. His biopsy results will be further followed up and discussed during his GI appointment. Physical Exam Vital Signs: Temp Pulse Resp BP Pulse Ox 97.9 F 55 L 18 139/85 H 100 10/08/18 15:09 10/08/18 15:09 10/08/18 15:09 10/08/18 15:09 10/08/18 15:09 Intake & Output 10/07/18 10/08/18 10/09/18 06:59 06:59 06:59 Intake Total 2118 3628 Output Total 150 400 Balance 1968 3228 Weight 181 lb 10.574 oz 184 lb 15.485 oz General appearance: PRESENT: no acute distress, well-developed, well-nourished Head exam: PRESENT: atraumatic, normocephalic Eye exam: PRESENT: conjunctiva pink, EOMI, PERRLA. ABSENT: scleral icterus Ear exam: PRESENT: normal external ear exam Mouth exam: PRESENT: moist, tongue midline Neck exam: ABSENT: carotid bruit, JVD, lymphadenopathy, thyromegaly Respiratory exam: PRESENT: clear to auscultation lisa. ABSENT: rales, rhonchi, wheezes Cardiovascular exam: PRESENT: RRR. ABSENT: diastolic murmur, rubs, systolic murmur Pulses: PRESENT: normal dorsalis pedis pul GI/Abdominal exam: PRESENT: normal bowel sounds, soft. ABSENT: distended, guarding, mass, organolmegaly, rebound, tenderness Rectal exam: PRESENT: deferred Extremities exam: PRESENT: full ROM. ABSENT: calf tenderness, clubbing, pedal edema Neurological exam: PRESENT: alert, awake, oriented to person, oriented to place, oriented to time, oriented to situation, CN II-XII grossly intact. ABSENT: motor sensory deficit Results Laboratory Results: 10/08/18 12:00 10/06/18 11:16 10/08/18 10/08/18 05:23 12:00 WBC 5.8 5.0 RBC 3.99 L 4.12 L Hgb 11.7 L 12.0 L Hct 34.6 L 35.9 L MCV 87 87 MCH 29.2 29.1 MCHC 33.7 33.4 RDW 14.6 H 14.6 H Plt Count 168 185 Seg Neutrophils % 71.6 Lymphocytes % 19.1 Monocytes % 5.8 Eosinophils % 2.9 Basophils % 0.6 Absolute Neutrophils 4.2 Absolute Lymphocytes 1.1 Absolute Monocytes 0.3 Absolute Eosinophils 0.2 Absolute Basophils 0.0 Impressions: Abdomen/Pelvis CTA 10/06/18 14:41 IMPRESSION: 1 . Multiple simple hepatic cyst. 2. lobulation lower pole right kidney essentially unchanged. Follow-up with ultrasound could be obtained . 3. Minimal thickening of the bladder wall. 4. Colonic diverticulosis. Qualifiers - * PATIENT BEING DISCHARGED WITH ANY OF THE FOLLOWING DIAGNOSIS: No Acute Heart Failure Is this a Heart Failure Patient?: No
== END 2018-10-08 15:56 | disposition home or self-care (01) ==
LOC: ER 10:45 → INTOOBSV 17:14 → EH 17:14 → 4S 19:46
PROVIDERS: ADMIT Internal Medicine; ATTEND Internal Medicine
PROC: 0DBL8ZX Excision of Transverse Colon, Via Natural or Artificial Opening Endoscopic, Diagnostic (ICD-10-PCS; principal; 2018-10-08 09:00)
DX: K62.5 Hemorrhage of anus and rectum (principal); K63.3 Ulcer of intestine; I25.10 Atherosclerotic heart disease of native coronary artery without angina pectoris; I10 Essential (primary) hypertension; G89.29 Other chronic pain; M54.9 Dorsalgia, unspecified; K57.30 Diverticulosis of large intestine without perforation or abscess without bleeding; K52.89 Other specified noninfective gastroenteritis and colitis; K21.9 Gastro-esophageal reflux disease without esophagitis; F99 Mental disorder, not otherwise specified; F31.9 Bipolar disorder, unspecified; Z79.82 Long term (current) use of aspirin; Z79.899 Other long term (current) drug therapy; Z87.820 Personal history of traumatic brain injury; Z79.891 Long term (current) use of opiate analgesic; Z87.19 Personal history of other diseases of the digestive system; Z95.5 Presence of coronary angioplasty implant and graft; Z80.0 Family history of malignant neoplasm of digestive organs
CPT/HCPCS: 99285; 96360; 45380; 86900; 86901; 36415 ×3; 86850; 85025 ×3; 85610; 82272; 80053; 81001; 88305 ×2; 74174; G0378 ×4; A9270 ×9; J2250; J3010; J2270 ×2; C9113 ×3; J3490 ×2; J2405; J7030 ×3; J0171; J1200; J1610; J2310; S0164